=== PATIENT | male | born 1935 | race Caucasian/White ===

== ENCOUNTER 2016-05-11 23:00 | Inpatient (IN) | payer MEDICARE, MEDICAID ==
[2016-05-11 23:00] VITALS: BMI 22.9
--- NOTE | 2016-05-11 23:15 | C.PDOC ---
History Of Present Illness <LukeNehemiah - Last Filed: 05/12/16 04:30> <Leonidas Pizarro - Last Filed: 05/14/16 11:50> 81 y/o M from [facility] PMx CHF, HTN, DM, CAD, BPH, Alzheimer's dementia , being treated for GI bleed at [place] sent to ER for finding of abnormal labs including elevated potassium, BUN, creatinine, and low bicarb. Patient does not know why he is in ER and denies any complaints. (Leonidas Pizarro) <Nehemiah Luke Werner - Last Filed: 05/12/16 04:30> <Leonidas Pizarro - Last Filed: 05/14/16 11:50> Time Seen by Provider: 05/11/16 23:12 Past Medical History - Medical History PMH: Alzheimer's Disease, Asthma, Diabetes, HTN Denies: Chronic Kidney Disease Surgical History: CABG Family History: States: Unknown Family Hx - Social History Hx Tobacco Use: No Hx Alcohol Use: No Hx Substance Use: No - Immunization History Hx Tetanus Toxoid Vaccination: No Hx Influenza Vaccination: No Hx Pneumococcal Vaccination: No <Leonidas Pizarro - Last Filed: 05/14/16 11:50> Vital Signs: Last Vital Signs Temp 97.4 F L 05/14/16 07:29 Pulse 92 H 05/14/16 07:29 Resp 20 05/14/16 07:29 BP 115/72 05/14/16 11:17 Pulse Ox 98 05/14/16 07:29 - [facility] Procedures DEBRIDEMENT OF NAIL, NAIL BED OR NAIL FOLD (06/28/13) EXCISION OF ASCENDING COLON, ENDO, DIAGN (11/03/15) EXCISION OF DESCENDING COLON, ENDO, DIAGN (11/03/15) EXCISION OF STOMACH, ENDO, DIAGN (11/03/15) INSPECTION OF BLADDER, ENDO (07/20/15) VACCINATION NEC (06/28/13) Review Of Systems Review Of Systems: ROS cannot be obtained secondary to pt's inabilty to answer questions. (dementia) <Leonidas Pizarro Beti - Last Filed: 05/14/16 11:50> Physical Exam <Nehemiah Luke - Last Filed: 05/12/16 04:30> <MoiraLeonidas Bang - Last Filed: 05/14/16 11:50> - Physical Exam Additional Physical Exam Comments: Constitutional: Thin elderly male. Head: Normocephalic. Atraumatic. Eyes: PERRL. ENT: Moist mucous membranes. Neck: Supple. Cardiovascular: Regular rate. Radial pulses 2+ bilaterally. Chest: No tenderness. Respiratory: Clear to auscultation bilaterally. GI: Soft. Nontender. Nondistended. Back: No CVA tenderness. Musculoskeletal: No tenderness or swelling of extremities. Skin: No rash. Neurologic: Alert, no focal deficit. (Leonidas Pizarro) ED Course And Treatment - Laboratory Results Result Diagrams: 05/12/16 00:14 05/12/16 00:14 ECG: Interpreted By Me, Viewed By Me ECG Rhythm: Sinus Rhythm (74) <Nehemiah Luke - Last Filed: 05/12/16 04:30> - Laboratory Results Result Diagrams: 05/14/16 05:54 05/14/16 05:54 <Leonidas Pizarro - Last Filed: 05/14/16 11:50> Medical Decision Making <Nehemiah Luke - Last Filed: 05/12/16 04:30> <Leonidas Pizarro - Last Filed: 05/14/16 11:50> Medical Decision Making: Repeat labs. Check EKG for potassium changes. Will hold off on IVF due to patient's CHF. Dr. Pink will be called to accept patient to his service. EKG NSR 74 bpm with T wave inversions laterally, unchanged from previous. No peaked T waves, normal intervals. CXR no infiltrate or consolidation. Signed out to ER night team at end of shift. (Leonidas Pizarro) Disposition Discussed With : Alvarado Pink Doctor Will See Patient In The: Hospital Counseled Patient/Family Regarding: Diagnosis - Disposition Disposition Time: 04:26 - POA Present On Arrival: None <Nehemiah Luke - Last Filed: 05/12/16 04:30> - Disposition Disposition Time: 01:00 <Leonidas Pizarro - Last Filed: 05/14/16 11:50> - Disposition Condition: GUARDED - Clinical Impression Clinical Impression: Hyperkalemia, Renal insufficiency
[2016-05-12 00:18] LABS: BASO % 0.5 % (0.0-2.0); EOS # 0.3 K/uL (0.0-0.7); EOS % 3.4 % (0.0-4.0); HEMATOCRIT 32.6 % (35.0-51.0); LYMPH # 0.8 K/uL (1.0-4.3); MEAN CELL VOLUME 93.5 fL (80.0-94.0); MEAN CORPUSCULAR HGB CONC 33.1 g/dL (33.0-37.0); MEAN PLATELET VOLUME 8.6 fL (7.2-11.7); MONO # 1.7 K/uL (0.0-0.8); MONO % 21.5 % (0.0-10.0); NRBC % 0.1 % (0.0-2.0); PLATELET COUNT 203 K/uL (130-400); RED CELL DISTRIBUTION WIDTH 13.3 % (11.5-14.5); WHITE BLOOD COUNT 7.7 K/uL (4.8-10.8)
[2016-05-12 00:28] LABS: INR 1.1
[2016-05-12 00:31] LABS: POTASSIUM 5.4 mmol/L (3.6-5.2)
[2016-05-12 00:34] LABS: ALB/GLOB RATIO 1.1 (1.0-2.1); BILIRUBIN,TOTAL 1.2 mg/dL (0.2-1.3); CALCIUM 9.3 mg/dl (8.6-10.4); TOTAL PROTEIN 7.8 g/dL (6.3-8.3)
[2016-05-12 00:46] LABS: TROPONIN I 0.03 ng/mL (0.00-0.120)
[2016-05-12 02:57] LABS: EOSINOPHIL 3 % (0-4); NEUTROPHIL 61 % (50-75); TOTAL CELLS COUNTED 100
[2016-05-12] MEDS ORDERED: Albuterol 0.042% Inhal Sol (1.25 mg/3 mL) UD IH STA (04:14)
[2016-05-12] MEDS ORDERED: Albuterol 0.042% Inhal Sol (1.25 mg/3 mL) UD ONE (04:53)
[2016-05-12] MEDS ORDERED: guaiFENesin 200 mg/10 ml Syrup UD PO PRN (05:37)
[2016-05-12] MEDS: Sodium Chloride 0.9% 1,000 ML IV SCH ×2 (06:37→22:48)
[2016-05-12 06:45] LABS: HEMATOCRIT 32.2 % (35.0-51.0); MEAN CELL VOLUME 93.4 fL (80.0-94.0); MEAN CORPUSCULAR HEMOGLOBIN 31.5 pg (27.0-31.0); MEAN CORPUSCULAR HGB CONC 33.8 g/dL (33.0-37.0); MEAN PLATELET VOLUME 8.2 fL (7.2-11.7); RED CELL DISTRIBUTION WIDTH 13.1 % (11.5-14.5); WHITE BLOOD COUNT 6.6 K/uL (4.8-10.8)
[2016-05-12 06:56] LABS: POTASSIUM 4.9 mmol/L (3.6-5.2)
[2016-05-12 06:58] LABS: IRON 97 ug/dL (49-181)
[2016-05-12 06:59] LABS: CALCIUM 9.3 mg/dl (8.6-10.4)
[2016-05-12 07:18] LABS: RBC URINE < 1 /hpf (0-3); URINE BACTERIA RARE (<OCC); URINE BILIRUBIN NEGATIVE (NEGATIVE); URINE BLOOD NEGATIVE (NEGATIVE); URINE COLOR Yellow (YELLOW); URINE GLUCOSE (UA) NORMAL (Normal); URINE KETONE NEGATIVE (NEGATIVE); URINE LEUKOCYTE ESTERASE NEG Leu/uL (Negative); URINE PROTEIN NEGATIVE (NEGATIVE); URINE UROBILINOGEN NORMAL mg/dL (0.2-1.0); WBC URINE 2 /hpf (0-5)
[2016-05-12] MEDS ORDERED: Albuterol-Ipratrop 3 mg / 0.5 (3 ml) UD ONE (07:52)
[2016-05-12] MEDS: Albuterol-Ipratrop 3 mg / 0.5 (3 ml) UD INH SCH ×2 (07:56→19:53)
--- NOTE | 2016-05-12 08:37 | RAD ---
HISTORY: dehydration COMPARISON: No prior. FINDINGS: LUNGS: Biapical pleural thickening with upper lobe granulomatous changes. Right hilar prominence. No focal infiltrate or effusion. PLEURA: No significant pleural effusion identified, no pneumothorax apparent. CARDIOVASCULAR: Normal. OSSEOUS STRUCTURES: Calcific tendinopathy of the left proximal humerus. VISUALIZED UPPER ABDOMEN: Normal. OTHER FINDINGS: Status post median sternotomy. IMPRESSION: Biapical pleural thickening with upper lobe granulomatous changes. Right hilar prominence. No focal infiltrate or effusion.
[2016-05-12] MEDS: (Novolog) Insulin Aspart, Recombinant 100 u/ml 10 ml vial SC SCH ×4 (09:52→22:10)
--- NOTE | 2016-05-12 09:55 | US ---
PROCEDURE: Ultrasound of the Kidneys HISTORY: brian COMPARISON: None available. TECHNIQUE: Sonogram of the kidneys. FINDINGS: RIGHT KIDNEY: Measures: 10.3 cm. Normal in size, contour and echogenicity. Simple cortical cyst mid right kidney, 1.1 x 1.1 x 1.2 cm. 3 mm cortical calcification mid right kidney. LEFT KIDNEY: Measures: 8.9 cm. Normal in size, contour and echogenicity. No stone, solid mass lesion or hydronephrosis visualized. OTHER FINDINGS: None. IMPRESSION: 1.2 cm mid right renal cortical cysts. Punctate right renal cortical calcification, nonspecific.
[2016-05-12] MEDS: clonazePAM 0.25 MG TAB PO SCH ×2 (11:19→18:22)
--- NOTE | 2016-05-12 13:45 | CP.PCM.CON ---
History of Present Illness - History of Present Illness History of Present Illness: pt seen and examined, full consult is dictated #[id number] 1. LORETTA on ckd 2. Cardiomayopathy 3. s/p hyperkalemia 4. met. acidosis 5. diarrhea r/o c diff, ? sec to kayexalate 6. dehydration 7. dementia check urine lytes, osm, cr, stool ffor c/s, wbc, c diff gentle iv hydration, 1/2ns at 50-70 ml/hr bmp in am Past Patient History - Infectious Disease Hx of Infectious Diseases: None - Past Medical History & Family History Past Medical History?: Yes - Past Social History Smoking Status: Former Smoker - CARDIAC Hx Congestive Heart Failure: Yes Hx Hypertension: Yes - PULMONARY Hx Asthma: Yes - NEUROLOGICAL Hx Alzheimer's Disease: Yes - HEENT Hx HEENT Problems: No - RENAL Hx Chronic Kidney Disease: No - ENDOCRINE/METABOLIC Hx Endocrine Disorders: Yes Hx Diabetes Mellitus Type 2: Yes - INTEGUMENTARY Other/Comment: old scrath scar on both arms, chest , abdomen and back. - MUSCULOSKELETAL/RHEUMATOLOGICAL Hx Falls: Yes - GASTROINTESTINAL Hx Gastrointestinal Disorders: No Hx Diarrhea: Yes Other/Comment: GI bleed - GENITOURINARY/GYNECOLOGICAL Hx Genitourinary Disorders: No Hx Prostate Problems: Yes - PSYCHIATRIC Hx Substance Use: No - SURGICAL HISTORY Hx Coronary Artery Bypass Graft: Yes - ANESTHESIA Hx Anesthesia: Yes Hx Anesthesia Reactions: No Hx Malignant Hyperthermia: No Meds Allergies/Adverse Reactions: Allergies Allergy/AdvReac Type Severity Reaction Status Date / Time No Known Allergies Allergy Verified 05/11/16 23:18 - Medications Medications: Current Medications Albuterol/Ipratropium (Duoneb 3 Mg/0.5 Mg (3 Ml) Ud) 3 ml INH RQ6 [facility] Last Admin: 05/12/16 07:56 Dose: 3 ml Clonazepam (Klonopin- Half Tab) 0.25 mg PO BID [facility] Last Admin: 05/12/16 11:19 Dose: 0.25 mg Donepezil HCl (Aricept) 10 mg PO HS [facility] Guaifenesin (Robitussin) 200 mg PO Q4H PRN PRN Reason: Cough and congestion Sodium Chloride (Sodium Chloride 0.9%) 1,000 mls @ 60 mls/hr IV .[id number] [facility] Last Admin: 05/12/16 06:37 Dose: 60 mls/hr Insulin Aspart (Novolog) 0 unit SC ACHS [facility] PRN Reason: Protocol Last Admin: 05/12/16 13:03 Dose: 3 unit Metoprolol Tartrate (Lopressor) 25 mg PO BID [facility] Last Admin: 05/12/16 11:19 Dose: 25 mg Pantoprazole Sodium (Protonix Inj) 40 mg IVP DAILY [facility] Last Admin: 05/12/16 11:19 Dose: 40 mg Pneumococcal Polyvalent Vaccine (Pneumovax 23 Vaccine) 0.5 ml IM .ONCE ONE Stop: 05/14/16 10:01 Quetiapine Fumarate (Seroquel) 25 mg PO [facility] Tamsulosin HCl (Flomax) 0.4 mg PO DAILY [facility] Last Admin: 05/12/16 11:19 Dose: 0.4 mg Results - Vital Signs Recent Vital Signs: Last Vital Signs Temp 97.3 F L 05/12/16 09:08 Pulse 76 05/12/16 09:08 Resp 20 05/12/16 09:08 BP 111/58 L 05/12/16 11:19 Pulse Ox 96 05/12/16 09:08 - Labs Result Diagrams: 05/12/16 06:42 05/12/16 06:42 Labs: Laboratory Results - last 24 hr 05/12/16 05/12/16 05/12/16 06:42 07:08 07:39 WBC 6.6 RBC 3.44 L Hgb 10.9 L Hct 32.2 L MCV 93.4 MCH 31.5 H MCHC 33.8 RDW 13.1 Plt Count 202 MPV 8.2 Sodium 136 Potassium 4.9 Chloride 103 Carbon Dioxide 19 L Anion Gap 19 BUN 95 H Creatinine 2.8 H Est GFR ( Amer) 26 Est GFR (Non-Af Amer) 22 POC Glucose (mg/dL) 184 H Random Glucose 156 H Calcium 9.3 Iron 97 TIBC 263 % Saturation 37 Urine Color Yellow Urine Clarity Hazy Urine pH 5.0 Ur Specific [place] 1.017 Urine Protein Negative Urine Glucose (UA) Normal Urine Ketones Negative Urine Blood Negative Urine Nitrate Negative Urine Bilirubin Negative Urine Urobilinogen Normal Ur Leukocyte Esterase Neg Urine WBC (Auto) 2 Urine RBC (Auto) < 1 Ur Squamous Epith Cells < 1 Urine Bacteria Rare Stool Occult Blood 05/12/16 05/12/16 05/12/16 09:21 09:44 11:32 WBC RBC Hgb Hct MCV MCH MCHC RDW Plt Count MPV Sodium Potassium Chloride Carbon Dioxide Anion Gap BUN Creatinine Est GFR ( Amer) Est GFR (Non-Af Amer) POC Glucose (mg/dL) 212 H 261 H Random Glucose Calcium Iron TIBC % Saturation Urine Color Urine Clarity Urine pH Ur Specific [place] Urine Protein Urine Glucose (UA) Urine Ketones Urine Blood Urine Nitrate Urine Bilirubin Urine Urobilinogen Ur Leukocyte Esterase Urine WBC (Auto) Urine RBC (Auto) Ur Squamous Epith Cells Urine Bacteria Stool Occult Blood Positive H
--- NOTE | 2016-05-12 15:41 | CP.PCM.CON ---
<Jose Ariza - Last Filed: 05/12/16 16:55> History of Present Illness - History of Present Illness History of Present Illness: PGY4 GI Fellow Consult Note Patient is an 80yo male with PMHx significant for Alzheimer's dementia, CAD s/p CABG, CHF with EF 25%, diverticulosis, HTN, Rain's esophagus with low grade dysplasia, H pylori gastritis [facility] and abnormal lab work. The patient is unable to provide any history and does not have any complaints at this time. Apparently, the patient has been passing bright red blood per rectum for the past several days and was transferred to our facility for further evaluation. Discussed case with one to one who is at bedside who admits that the patient has passed two BM since this morning with obvious hematochezia. Currently, the patient denies any complaints whatsoever including abdominal pain, dizziness, lightheadedness, palpitations, nausea, vomiting. The patient was evaluated by our service in October 2015 for similar complaints and found to have 7 polyps and multiple large and small mouthed diverticula. Of note, patient had ascites on last admission with 900cc serosanguinous fluid removed (SAAG not obtained, total protein < 3). PMHx: See HPI PSHx: CABG, left leg surgical scar noted FHx: Unable to obtain Social: Denies - Unable to obtain history Endo: Oct 2015 - EGD/Colon - Poor quality prep; 7 polyps (tubular adenomas), diverticulosis; Rain's esophagus with LGD, H pylori positive gastritis Review of Systems - Review of Systems Systems not reviewed;Unavailable: Dementia Past Patient History - Infectious Disease Hx of Infectious Diseases: None - Past Medical History & Family History Past Medical History?: Yes - Past Social History Smoking Status: Former Smoker - CARDIAC Hx Cardiac Disorders: Yes (CAD,CABG) Hx Congestive Heart Failure: Yes Hx Hypertension: Yes - PULMONARY Hx Asthma: Yes - NEUROLOGICAL Hx Alzheimer's Disease: Yes - HEENT Hx HEENT Problems: No - RENAL Hx Chronic Kidney Disease: No - ENDOCRINE/METABOLIC Hx Diabetes Mellitus Type 2: Yes - INTEGUMENTARY Other/Comment: old scrath scar on both arms, chest , abdomen and back. - MUSCULOSKELETAL/RHEUMATOLOGICAL Hx Falls: Yes - GASTROINTESTINAL Hx Gastrointestinal Disorders: No Hx Diarrhea: Yes Other/Comment: GI bleed - GENITOURINARY/GYNECOLOGICAL Hx Genitourinary Disorders: No Hx Prostate Problems: Yes - PSYCHIATRIC Hx Substance Use: No - SURGICAL HISTORY Hx Coronary Artery Bypass Graft: Yes - ANESTHESIA Hx Anesthesia: Yes Hx Anesthesia Reactions: No Hx Malignant Hyperthermia: No Meds Allergies/Adverse Reactions: Allergies Allergy/AdvReac Type Severity Reaction Status Date / Time No Known Allergies Allergy Verified 05/11/16 23:18 - Medications Medications: Current Medications Albuterol/Ipratropium (Duoneb 3 Mg/0.5 Mg (3 Ml) Ud) 3 ml INH RQ6 [facility] Last Admin: 05/12/16 07:56 Dose: 3 ml Clonazepam (Klonopin- Half Tab) 0.25 mg PO BID [facility] Last Admin: 05/12/16 11:19 Dose: 0.25 mg Donepezil HCl (Aricept) 10 mg PO HS [facility] Guaifenesin (Robitussin) 200 mg PO Q4H PRN PRN Reason: Cough and congestion Sodium Chloride (Sodium Chloride 0.9%) 1,000 mls @ 60 mls/hr IV .[id number] [facility] Last Admin: 05/12/16 06:37 Dose: 60 mls/hr Sodium Chloride (Sodium Chloride 0.45%) 1,000 mls @ 50 mls/hr IV .Q20H [facility] Insulin Aspart (Novolog) 0 unit SC ACHS [facility] PRN Reason: Protocol Last Admin: 05/12/16 13:03 Dose: 3 unit Metoprolol Tartrate (Lopressor) 25 mg PO BID [facility] Last Admin: 05/12/16 11:19 Dose: 25 mg Pantoprazole Sodium (Protonix Inj) 40 mg IVP DAILY [facility] Last Admin: 05/12/16 11:19 Dose: 40 mg Pneumococcal Polyvalent Vaccine (Pneumovax 23 Vaccine) 0.5 ml IM .ONCE ONE Stop: 05/14/16 10:01 Quetiapine Fumarate (Seroquel) 25 mg PO HS [facility] Tamsulosin HCl (Flomax) 0.4 mg PO DAILY [facility] Last Admin: 05/12/16 11:19 Dose: 0.4 mg Physical Exam - Constitutional Appears: Non-toxic, No Acute Distress - Eye Exam Eye Exam: EOMI, PERRL - ENT Exam ENT Exam: Mucous Membranes Dry - Respiratory Exam Respiratory Exam: Clear to Auscultation Bilateral. absent: Rales, Rhonchi, Wheezes - Cardiovascular Exam Cardiovascular Exam: RRR, +S1, +S2 - GI/Abdominal Exam GI & Abdominal Exam: Normal Bowel Sounds, Soft. absent: Distended, Firm, Guarding, Organomegaly, Rigid, Tenderness - Rectal Exam Rectal Exam: NORMAL INSPECTION. absent: Black Stool, Bloody Stool - Extremities Exam Extremities exam: Positive for: normal inspection. Negative for: pedal edema Additional comments: surgical scar on left leg - Neurological Exam Additional comments: demented - Psychiatric Exam Psychiatric exam: Normal Affect, Normal Mood - Skin Skin Exam: Dry, Warm Results - Vital Signs Recent Vital Signs: Last Vital Signs Temp 97.3 F L 05/12/16 09:08 Pulse 76 05/12/16 09:08 Resp 20 05/12/16 09:08 BP 111/58 L 05/12/16 11:19 Pulse Ox 96 05/12/16 09:08 - Labs Result Diagrams: 05/12/16 06:42 05/12/16 06:42 Labs: Laboratory Results - last 24 hr 05/12/16 05/12/16 05/12/16 06:42 07:08 07:39 WBC 6.6 RBC 3.44 L Hgb 10.9 L Hct 32.2 L MCV 93.4 MCH 31.5 H MCHC 33.8 RDW 13.1 Plt Count 202 MPV 8.2 Sodium 136 Potassium 4.9 Chloride 103 Carbon Dioxide 19 L Anion Gap 19 BUN 95 H Creatinine 2.8 H Est GFR ( Amer) 26 Est GFR (Non-Af Amer) 22 POC Glucose (mg/dL) 184 H Random Glucose 156 H Calcium 9.3 Iron 97 TIBC 263 % Saturation 37 Urine Color Yellow Urine Clarity Hazy Urine pH 5.0 Ur Specific [place] 1.017 Urine Protein Negative Urine Glucose (UA) Normal Urine Ketones Negative Urine Blood Negative Urine Nitrate Negative Urine Bilirubin Negative Urine Urobilinogen Normal Ur Leukocyte Esterase Neg Urine WBC (Auto) 2 Urine RBC (Auto) < 1 Ur Squamous Epith Cells < 1 Urine Bacteria Rare Stool Occult Blood 05/12/16 05/12/16 05/12/16 09:21 09:44 11:32 WBC RBC Hgb Hct MCV MCH MCHC RDW Plt Count MPV Sodium Potassium Chloride Carbon Dioxide Anion Gap BUN Creatinine Est GFR ( Amer) Est GFR (Non-Af Amer) POC Glucose (mg/dL) 212 H 261 H Random Glucose Calcium Iron TIBC % Saturation Urine Color Urine Clarity Urine pH Ur Specific [place] Urine Protein Urine Glucose (UA) Urine Ketones Urine Blood Urine Nitrate Urine Bilirubin Urine Urobilinogen Ur Leukocyte Esterase Urine WBC (Auto) Urine RBC (Auto) Ur Squamous Epith Cells Urine Bacteria Stool Occult Blood Positive H Assessment & Plan - Assessment and Plan (Free Text) Assessment: Patient is an 80yo male with PMHx significant for Alzheimer's dementia, CAD s/p CABG, CHF with EF 25%, diverticulosis, HTN, Rain's esophagus with low grade dysplasia, H pylori gastritis who [facility] of [facility] and abnormal lab work. -Acute blood loss anemia -Acute renal insufficiency -Hematochezia; suspect diverticular bleeding given known history and recent colonoscopy -Rain's esophagus with low grade dysplasia -CAD/CABG/CHF (EF 25%) -H pylori gastritis, unclear if treated previously Plan: -Medical optimization: re: LORETTA/CAD prior to endoscopic intervention -Request cardiology clearance for EGD/Colonoscopy, plan for Thursday -Clear liquid diet tomorrow; start bowel prep tomorrow afternoon if cleared by consultants -Transfuse as indicated -With regards to suspected Rain's esophagus given recent biopsy results - patient would benefit from repeat EGD with biopsies to evaluate site; possibly even EUS if nodular BE suspected -It does not appear patient has been treated for H pylori, will biopsy during repeat EGD and treat with triple therapy as indicated - Date & Time Date: 05/12/16 Time: 13:00 <Cali Shaffer MD - Last Filed: 05/13/16 10:10> Meds - Medications Medications: Current Medications Albuterol/Ipratropium (Duoneb 3 Mg/0.5 Mg (3 Ml) Ud) 3 ml INH RQ6 [facility] Last Admin: 05/13/16 08:29 Dose: 3 ml Clonazepam (Klonopin- Half Tab) 0.25 mg PO BID [facility] Last Admin: 05/12/16 18:22 Dose: 0.25 mg Donepezil HCl (Aricept) 10 mg PO HS [facility] Last Admin: 05/12/16 21:33 Dose: 10 mg Guaifenesin (Robitussin) 200 mg PO Q4H PRN PRN Reason: Cough and congestion Sodium Chloride (Sodium Chloride 0.9%) 1,000 mls @ 60 mls/hr IV .[id number] [facility] Last Admin: 05/12/16 22:48 Dose: Not Given Sodium Chloride (Sodium Chloride 0.45%) 1,000 mls @ 50 mls/hr IV .Q20H [facility] Last Admin: 05/12/16 16:09 Dose: 50 mls/hr Insulin Aspart (Novolog) 0 unit SC ACHS [facility] PRN Reason: Protocol Last Admin: 05/13/16 08:14 Dose: Not Given Metoprolol Tartrate (Lopressor) 25 mg PO BID [facility] Last Admin: 05/12/16 18:20 Dose: 25 mg Pantoprazole Sodium (Protonix Inj) 40 mg IVP DAILY [facility] Last Admin: 05/12/16 11:19 Dose: 40 mg Pneumococcal Polyvalent Vaccine (Pneumovax 23 Vaccine) 0.5 ml IM .ONCE ONE Stop: 05/14/16 10:01 Quetiapine Fumarate (Seroquel) 25 mg PO HS [facility] Last Admin: 05/12/16 21:33 Dose: 25 mg Tamsulosin HCl (Flomax) 0.4 mg PO DAILY [facility] Last Admin: 05/12/16 11:19 Dose: 0.4 mg Results - Vital Signs Recent Vital Signs: Last Vital Signs Temp 98.3 F 05/13/16 07:33 Pulse 80 05/13/16 07:33 Resp 20 05/13/16 07:33 BP 114/69 05/13/16 07:33 Pulse Ox 98 05/13/16 07:33 - Labs Result Diagrams: 05/12/16 06:42 05/12/16 06:42 Labs: Laboratory Results - last 24 hr 05/12/16 05/12/16 05/12/16 09:44 11:32 16:50 POC Glucose (mg/dL) 261 H 132 H Ur Random Sodium Ur Random Potassium Stool Occult Blood Positive H 05/12/16 05/13/16 05/13/16 21:41 07:25 07:47 POC Glucose (mg/dL) 149 H 118 H Ur Random Sodium 32 Ur Random Potassium 33.9 Stool Occult Blood Attending/Attestation - Attestation I have personally seen and examined this patient.: Yes I have fully participated in the care of the patient.: Yes I have reviewed all pertinent clinical information: Yes Notes (Text): 05/13/16 10:08 patient seen with Gi fellow on rounds. A/P is as outlined yesterday afternoon. This is a 80yo male with PMHx significant for Alzheimer's dementia, CAD s/p CABG , CHF with EF 25%, diverticulosis, HTN, Rain's esophagus with low grade dysplasia, H pylori gastritis who [facility] and abnormal lab work. H/Hct dropped by 2 gm/dl. Needs medical optimization for LORETTA/CAD prior to endoscopic intervention and cardiology clearance for EGD/Colonoscopy, plan for Thursday. Transfuse as indicated -With regards to suspected Rain's esophagus given recent biopsy results - patient would benefit from repeat EGD with biopsies to evaluate site; possibly even EUS if nodular BE suspected -It does not appear patient has been treated for H pylori, will biopsy during repeat EGD and treat with triple therapy as indicated
[2016-05-12] MEDS: Sodium Chloride 0.45% 1,000 ML IV SCH (16:09)
--- NOTE | 2016-05-12 16:10 | CON ---
DATE: 05/12/2016 REFERRING PHYSICIAN: Dr. Pink HISTORY OF PRESENT ILLNESS: This 81-year-old gentleman was brought in from [facility] with worsen ing of the renal status. He was found to be lethargic. The patient has a longstanding history of di ffuse atherosclerosis, history of hypertension, diabetes, coronary artery disease, peripheral vascula r disease, Alzheimer disease, history of GI bleed. PERSONAL HISTORY: Does not smoke, does not drink. ALLERGIES: None known. FAMILY HISTORY: One son, to my recollection, has diabetes. PAST MEDICAL HISTORY: History of diabetes, insulin-dependent; hypertension, chronic kidney disease, CABG many years ago. Also has peripheral vascular disease and headache. Fem-pop done on the right s emmett. This was done many years ago. Carotid disease. REVIEW OF SYSTEMS: Generalized weakness is noted. No fever, no chills. No visual disturbances. De nies any urinary complaints. Denies any chest pains. No cough, no hemoptysis. Weakness is noted. Leg pains. No specific joint pains. No seizures. No history of TIAs or CVAs. Frequency is noted f or urination. No rash. MEDICATIONS AT HOME: Include, he is on insulin, metoprolol, Flomax, nebulizer treatment. PHYSICAL EXAMINATION: GENERAL: Shows elderly gentleman who is conscious, alert, and oriented. He remembers my name. In n o acute distress. Appears chronically sick. VITAL SIGNS: He is 5 feet 5 inches and weighs 120 pounds. His blood pressure is 111/58, heart rate of 76 regular, respiratory rate of 20, temperature of 97.3. HEAD: Normocephalic. EYES: No pallor, no icterus. MOUTH: Absence of all teeth. Mucous membrane is dry. NECK: Supple. No lymphadenopathy. No thyroid enlargement. LUNGS: Clear anteriorly bilaterally. HEART: PMI is normal. S1, S2 is normal. Soft S4 gallop. Soft holosystolic murmur in mitral area, grade I/ to II/. ABDOMEN: Soft, nontender. EXTREMITIES: No cyanosis, clubbing or edema. Distal pulses are feeble, but palpable. SKIN: Shows healed surgical scar of CABG and right fem-popliteal. LABORATORY DATA: Shows BUN of 95. Creatinine is 2.8. Sugar is 261. Hemoglobin is 10 grams. EKG i s sinus rhythm, nonspecific ST-T changes. ASSESSMENT: An 81-year-old gentleman with a history of hypertension, diabetes, diffuse atheroscleros is and chronic kidney disease as well. Presented with worsening of the renal failure. PLAN: Hydration gingerly. We will obtain echocardiogram with Doppler studies to evaluate the LV fun ction. Nephrology consultation has already been done by Dr. Rowley and we will follow along wi th you. I thank you kindly. Aj Johnson MD cc: [id number] TT: 05/12/2016 16:09:39 Confirmation # [id number] Dictation # [id number]
--- NOTE | 2016-05-12 23:14 | CARD ---
APPROVED REPORT EKG Measurement Heart [id number] <Conclusion> Normal sinus rhythm with sinus arrhythmia Possible Left atrial enlargement ST & T wave abnormality, consider anterolateral ischemia Abnormal ECG
--- NOTE | 2016-05-12 23:27 | CP.PCM.HP ---
History of Present Illness - History of Present Illness History of Present Illness: Cheif complain: rectal bleeding. Patient is an 80yo male well known to me with PMHx significant for Alzheimer's dementia, CAD s/p CABG, CHF with EF 25%, diverticulosis, HTN, Hyperlipidemia, Rain's esophagus with low grade dysplasia, H pylori gastritis who is complaint with diet, medication and follow up, presented from group home with complaint of rectal bleeding and abnormal lab work. The patient is unable to provide any history and does not have any complaints at this time. Apparently, the patient has been passing bright red blood per rectum for the past several days and was transferred to our facility for further evaluation. Discussed case with one to one who is at bedside who admits that the patient has passed two BM since this morning with obvious hematochezia. Currently, the patient denies any complaints whatsoever including abdominal pain, dizziness, lightheadedness, palpitations, nausea, vomiting. The patient was evaluated by GI in October 2015 for similar complaints and found to have 7 polyps and multiple large and small mouthed diverticula. Of note, patient had ascites on last admission with 900cc serosanguinous fluid removed (SAAG not obtained, total protein < 3). Present on Admission - Present on Admission Any Indicators Present on Admission: No Past Patient History - Infectious Disease Hx of Infectious Diseases: None - Past Medical History & Family History Past Medical History?: Yes - Past Social History Smoking Status: Former Smoker - CARDIAC Hx Congestive Heart Failure: Yes Hx Hypertension: Yes - PULMONARY Hx Asthma: Yes - NEUROLOGICAL Hx Alzheimer's Disease: Yes - HEENT Hx HEENT Problems: No - RENAL Hx Chronic Kidney Disease: No - ENDOCRINE/METABOLIC Hx Endocrine Disorders: Yes Hx Diabetes Mellitus Type 2: Yes - INTEGUMENTARY Other/Comment: old scrath scar on both arms, chest , abdomen and back. - MUSCULOSKELETAL/RHEUMATOLOGICAL Hx Falls: Yes - GASTROINTESTINAL Hx Gastrointestinal Disorders: No Hx Diarrhea: Yes Other/Comment: GI bleed - GENITOURINARY/GYNECOLOGICAL Hx Genitourinary Disorders: No Hx Prostate Problems: Yes - PSYCHIATRIC Hx Substance Use: No - SURGICAL HISTORY Hx Coronary Artery Bypass Graft: Yes - ANESTHESIA Hx Anesthesia: Yes Hx Anesthesia Reactions: No Hx Malignant Hyperthermia: No Meds Allergies/Adverse Reactions: Allergies Allergy/AdvReac Type Severity Reaction Status Date / Time No Known Allergies Allergy Verified 05/11/16 23:18 Physical Exam - Constitutional Appears: No Acute Distress, Confused, Chronically Ill - Respiratory Exam Respiratory Exam: Decreased Breath Sounds, Rales - Cardiovascular Exam Cardiovascular Exam: REGULAR RHYTHM - GI/Abdominal Exam GI & Abdominal Exam: Normal Bowel Sounds, Soft. absent: Tenderness - Rectal Exam Rectal Exam: Bloody Stool - Neurological Exam Neurological exam: Altered - Skin Additional comments: senile turgor Results - Vital Signs Recent Vital Signs: Last Vital Signs Temp 97.3 F L 05/12/16 09:08 Pulse 92 H 05/12/16 19:55 Resp 20 05/12/16 09:08 BP 112/62 05/12/16 18:20 Pulse Ox 96 05/12/16 09:08 - Labs Result Diagrams: 05/15/16 05:31 05/15/16 05:31 Labs: Laboratory Results - last 24 hr 05/12/16 05/12/16 05/12/16 06:42 07:08 07:39 WBC 6.6 RBC 3.44 L Hgb 10.9 L Hct 32.2 L MCV 93.4 MCH 31.5 H MCHC 33.8 RDW 13.1 Plt Count 202 MPV 8.2 Sodium 136 Potassium 4.9 Chloride 103 Carbon Dioxide 19 L Anion Gap 19 BUN 95 H Creatinine 2.8 H Est GFR ( Amer) 26 Est GFR (Non-Af Amer) 22 POC Glucose (mg/dL) 184 H Random Glucose 156 H Calcium 9.3 Iron 97 TIBC 263 % Saturation 37 Urine Color Yellow Urine Clarity Hazy Urine pH 5.0 Ur Specific [place] 1.017 Urine Protein Negative Urine Glucose (UA) Normal Urine Ketones Negative Urine Blood Negative Urine Nitrate Negative Urine Bilirubin Negative Urine Urobilinogen Normal Ur Leukocyte Esterase Neg Urine WBC (Auto) 2 Urine RBC (Auto) < 1 Ur Squamous Epith Cells < 1 Urine Bacteria Rare Stool Occult Blood 05/12/16 05/12/16 05/12/16 09:21 09:44 11:32 WBC RBC Hgb Hct MCV MCH MCHC RDW Plt Count MPV Sodium Potassium Chloride Carbon Dioxide Anion Gap BUN Creatinine Est GFR ( Amer) Est GFR (Non-Af Amer) POC Glucose (mg/dL) 212 H 261 H Random Glucose Calcium Iron TIBC % Saturation Urine Color Urine Clarity Urine pH Ur Specific [place] Urine Protein Urine Glucose (UA) Urine Ketones Urine Blood Urine Nitrate Urine Bilirubin Urine Urobilinogen Ur Leukocyte Esterase Urine WBC (Auto) Urine RBC (Auto) Ur Squamous Epith Cells Urine Bacteria Stool Occult Blood Positive H 05/12/16 05/12/16 16:50 21:41 WBC RBC Hgb Hct MCV MCH MCHC RDW Plt Count MPV Sodium Potassium Chloride Carbon Dioxide Anion Gap BUN Creatinine Est GFR ( Amer) Est GFR (Non-Af Amer) POC Glucose (mg/dL) 132 H 149 H Random Glucose Calcium Iron TIBC % Saturation Urine Color Urine Clarity Urine pH Ur Specific [place] Urine Protein Urine Glucose (UA) Urine Ketones Urine Blood Urine Nitrate Urine Bilirubin Urine Urobilinogen Ur Leukocyte Esterase Urine WBC (Auto) Urine RBC (Auto) Ur Squamous Epith Cells Urine Bacteria Stool Occult Blood Assessment & Plan (1) Dementia Status: Chronic (2) Hypertension Status: Chronic (3) Rectal bleeding Status: Resolved
--- NOTE | 2016-05-13 01:18 | CON ---
DATE: 05/12/2016 The patient is located in room 360, bed B. REQUESTING PHYSICIAN: Dr. Alvarado Pink. REASON FOR RENAL CONSULTATION: Increased BUN and creatinine and for further evaluation. HISTORY OF PRESENT ILLNESS: The patient is an 81-year-old male who is a resident of [facility] with a history of hypertension, diabetes, congestive heart failure, coronary artery disease, BPH and dementia, being treated for a GI bleed in the jail, was found to have increased BUN and creatinine and abnormal labs and elevated potassium and low bicarbonate and the patient was sent to the Emergency Room for further evaluation. Unable to get much history from the patient and chart reviewed and history obtained from the review of the chart. PAST MEDICAL HISTORY: Significant for hypertension, diabetes, asthma, dementia , CAD, CHF, cardiomyopathy with LV function 25-30% and dementia. PAST SURGICAL HISTORY: Status post CABG and right leg surgery and also bilateral questionable hernia surgery. ALLERGIES: No known drug allergies. SOCIAL HISTORY: No smoking, no alcohol, no drugs at this time, but is in the jail. CURRENT MEDICATIONS: Include as follows: Aricept 10 mg at bedtime, and albuterol inhaler 3 mL every 6 hours, Flomax 0.4 mg p.o. daily, Klonopin 0.25 mg p.o. b.i.d. and metoprolol 25 mg p.o. b.i.d. and pneumococcal vaccine x 1, Protonix 40 mg daily, and Robitussin 200 mg p.o. every 4 hours p.r.n., Seroquel 25 mg p.o. at bedtime and IV fluids half normal saline at 50 mL per hour. FAMILY HISTORY: Not significant. REVIEW OF SYSTEMS: Significant for abnormal labs and diarrhea about 5 times since the patient was admitted to the floor and also significant for dehydration. All other review of systems are reviewed and are negative. PHYSICAL EXAMINATION: VITAL SIGNS: Blood pressure 112/62 and pulse about 92, respirations 20, temperature 97.3, saturation 96%. Height 5 feet 5 inches and weight is 120 pounds, BMI 20. GENERAL: The patient is an 81-year-old elderly male, moderately built , moderately nourished, not in any distress. HEENT: Pupils normal, reactive to light and accommodation. Conjunctivae pink. Sclerae anicteric. Tongue is dry. NECK: Trachea is midline. LUNGS: Symmetric on both sides. Bilateral breath sounds present. No crackles. CARDIOVASCULAR: Drybranch in the fifth intercostal space midclavicular line. S1 and S2 audible. No murmur or gallop. ABDOMEN: Normal in appearance. The patient has a scar in both inguinal regions and also a scar in the right lower extremity. Abdomen is soft, tympanic. No guarding, no rigidity. No hepatosplenomegaly. No abdominal bruits. CENTRAL NERVOUS SYSTEM: The patient is alert, awake, oriented x 1-2. EXTREMITIES: No cyanosis, no clubbing, no edema. SKIN: Turgor is poor. NEUROVASCULAR: Cranial nerves II-XII grossly intact. LABORATORY DATA: Include as follows as of 05/12/2016: WBC 7.7, hemoglobin 10.8 , hematocrit is 32.6, platelets 203 and neutrophils 61, bands 1, lymphocytes 16 , monocytes 19, eosinophils 3. PT is 11.8, INR 1.1, PTT 25. Sodium 132, potassium 5.4, chloride 99, CO2 16, BUN 94, creatinine 3.0. Glucose is 157, calcium 9.3, total bilirubin 1.2, AST 22, ALT 18, alkaline phosphatase is 52. Total CPK is 48, CK-MB 1.57. Troponin 0.0300, proBNP 3500. Total protein 7.8, albumin is 4.1, lipase is 84. His repeat labs: Sodium 136, potassium 4.9, chloride 103, CO2 19, BUN 95, creatinine 2.8, glucose 156, calcium 9.3 and iron is 97, TIBC 263, saturation 37. Urinalysis, yellow, hazy, pH 5, sp gr1.017, protein negative, glucose normal, ketones negative, blood negative, nitrites negative, bilirubin negative, urobilinogen normal, leukocyteesterasenegative, WBC 2, RBC less than 1, bacteriuria and stool for occult blood is positive. Ultrasound of the kidneys as of 05/12/2016. Right kidney 10.3 cm, normal size, contour and echogenicity simple cortical cyst, midright kidney 1.1 cm x 1.1 cm x 1.2 cm and 3 mm cortical calcification midright kidney, left kidney is 8.9 cm , normal size and contour and echogenicity. No stones, solid mass or hydronephrosis. Other reports: Chest x-ray, biapical pleural thickening with upper lobe granulomatous changes, right hilar prominence. No focal infiltrate or effusion status post median sternotomy. Review of the chart from the previous admissions: His echocardiogram LV function was about 25-30% as of 07/20/2015, left ventricular systolic function is severely impaired and ejection fraction is 25-30%. No aortic regurgitation is present. Mitral regurgitation is mild. There is mild to moderate tricuspid regurgitation. There is severe pulmonary hypertension. There is no pulmonary valve regurgitation. SUMMARY: The patient is an 81-year-old elderly male with a history of longstanding hypertension, diabetes, congestive heart failure, coronary artery disease, status post CABG, bilateral questionable hernia repair and dementia who was admitted with increased BUN and creatinine and hyperkalemia. Low bicarbonate. 1. Acute renal failure on chronic kidney disease. His baseline creatinine is about 1 from the previous hospitalization as of 11/11/2015 and his creatinine is 1-1.12 and 0.9. On admission now, the creatinine is 3.0. Rule out obstruction uropathy versus secondary to intravascular volume depletion and vigorous diuresis and increased azotemia. Cannot rule out secondary to slow GI bleed also. 2. Dehydration. 3. Diarrhea, rule out infectious etiology. 4. Cardiomyopathy. 5. Hypertension. 6. Dementia. 7. Status post hyperkalemia, most likely secondary to acute renal failure. Repeat potassium is within normal limits 8. Metabolic acidosis, most likely secondary to renal failure. PLAN: Continue Aricept and check urine electrolytes and osmolality and urine creatinine. We will start gentle IV hydration half normal saline at 60-70 mL per hour. He has tolerated repeat BMP in a.m. Overall, prognosis is guarded. Check stool for C. diff and stool for culture and leukocytes. Continue to monitor the renal function. No need for sodium bicarbonate at this time. Thank you for allowing me to participate in your patient's care. Sourav Rowley MD cc: [id number] TT: 05/13/2016 01:17:51 Confirmation # [id number] Dictation # [id number] [email or web address] EDDY
[2016-05-13] MEDS: Albuterol-Ipratrop 3 mg / 0.5 (3 ml) UD INH SCH ×4 (01:35→19:17)
[2016-05-13] MEDS: (Novolog) Insulin Aspart, Recombinant 100 u/ml 10 ml vial SC SCH ×5 (08:14→21:30)
--- NOTE | 2016-05-13 08:16 | CP.PCM.PN ---
<Jose Ariza - Last Filed: 05/13/16 08:20> Subjective - Date & Time of Evaluation Date of Evaluation: 05/13/16 Time of Evaluation: 07:20 - Subjective Subjective: PGY4 GI Fellow Progress Note Patient seen and examined bedside this morning. The patient denies any complaints at present. Full tray of liquid diet at bedside, untouched. Pt states he isn't hungry presently. Denies any abdominal pain nausea, vomiting, hematochezia, melena. Spoke with nursing staff who state pt had normal BM overnight with no sign of bright red blood. 12 system ROS performed and negative except where stated. ROS limited by dementia. Objective - Vital Signs/Intake and Output Vital Signs (last 24 hours): Temp Pulse Resp BP Pulse Ox 98.3 F 80 20 114/69 98 05/13/16 07:33 05/13/16 07:33 05/13/16 07:33 05/13/16 07:33 05/13/16 07:33 Intake and Output: 05/13/16 05/13/16 06:59 18:59 Intake Total 1230 Balance 1230 - Medications Medications: Current Medications Albuterol/Ipratropium (Duoneb 3 Mg/0.5 Mg (3 Ml) Ud) 3 ml INH RQ6 [facility] Last Admin: 05/13/16 01:35 Dose: Not Given Clonazepam (Klonopin- Half Tab) 0.25 mg PO BID [facility] Last Admin: 05/12/16 18:22 Dose: 0.25 mg Donepezil HCl (Aricept) 10 mg PO HS [facility] Last Admin: 05/12/16 21:33 Dose: 10 mg Guaifenesin (Robitussin) 200 mg PO Q4H PRN PRN Reason: Cough and congestion Sodium Chloride (Sodium Chloride 0.9%) 1,000 mls @ 60 mls/hr IV .[id number] [facility] Last Admin: 05/12/16 22:48 Dose: Not Given Sodium Chloride (Sodium Chloride 0.45%) 1,000 mls @ 50 mls/hr IV .Q20H [facility] Last Admin: 05/12/16 16:09 Dose: 50 mls/hr Insulin Aspart (Novolog) 0 unit SC ACHS [facility] PRN Reason: Protocol Last Admin: 05/13/16 08:14 Dose: Not Given Metoprolol Tartrate (Lopressor) 25 mg PO BID [facility] Last Admin: 05/12/16 18:20 Dose: 25 mg Pantoprazole Sodium (Protonix Inj) 40 mg IVP DAILY [facility] Last Admin: 05/12/16 11:19 Dose: 40 mg Pneumococcal Polyvalent Vaccine (Pneumovax 23 Vaccine) 0.5 ml IM .ONCE ONE Stop: 05/14/16 10:01 Quetiapine Fumarate (Seroquel) 25 mg PO HS [facility] Last Admin: 05/12/16 21:33 Dose: 25 mg Tamsulosin HCl (Flomax) 0.4 mg PO DAILY [facility] Last Admin: 05/12/16 11:19 Dose: 0.4 mg - Labs Labs: 05/12/16 06:42 05/12/16 06:42 PT 11.8 SECONDS (9.7-12.2) 05/12/16 00:14 INR 1.1 05/12/16 00:14 APTT 25 SECONDS (21-34) 05/12/16 00:14 - Constitutional Appears: Non-toxic, No Acute Distress - Eye Exam Eye Exam: EOMI, PERRL - ENT Exam ENT Exam: Mucous Membranes Moist - Respiratory Exam Respiratory Exam: Clear to Ausculation Bilateral. absent: Rales, Rhonchi, Wheezes - Cardiovascular Exam Cardiovascular Exam: RRR, +S1, +S2 - GI/Abdominal Exam GI & Abdominal Exam: Soft, Normal Bowel Sounds. absent: Distended, Firm, Guarding, Rigid, Tenderness, Organomegaly - Extremities Exam Extremities Exam: Normal Inspection. absent: Pedal Edema - Neurological Exam Neurological Exam: Alert, Awake. absent: Oriented x3 - Psychiatric Exam Psychiatric exam: Normal Affect, Normal Mood - Skin Skin Exam: Dry, Warm Assessment and Plan - Assessment and Plan (Free Text) Assessment: Patient is an 80yo male with PMHx significant for Alzheimer's dementia, CAD s/p CABG, CHF with EF 25%, diverticulosis, HTN, Rain's esophagus with low grade dysplasia, H pylori gastritis who presented from sn[facility] with complaint of rectal bleeding and abnormal lab work. -Acute blood loss anemia -Acute renal insufficiency -Hematochezia; suspect diverticular bleeding given known history and recent colonoscopy -Rain's esophagus with low grade dysplasia -CAD/CABG/CHF (EF 25%) -H pylori gastritis, unclear if treated previously Plan: -Medical optimization prior to endoscopic intervention; awaiting cardiac clearance for EGD/colonoscopy - their w/u is pending -Nephrology following for LORETTA, gentle hydration given history of CHF -Continue with clear liquid diet -Endoscopic evaluation pending clearance, plan for -CBC/BMP ordered -Pathology from prior endoscopic evaluation reviewed -Continue once daily PPI -It does not appear patient has been treated for H pylori, will biopsy during repeat EGD and treat with triple therapy as indicated <Donovan Joseph - Last Filed: 05/13/16 08:35> Objective - Vital Signs/Intake and Output Vital Signs (last 24 hours): Temp Pulse Resp BP Pulse Ox 98.3 F 80 20 114/69 98 05/13/16 07:33 05/13/16 07:33 05/13/16 07:33 05/13/16 07:33 05/13/16 07:33 Intake and Output: 05/13/16 05/13/16 06:59 18:59 Intake Total 1230 Balance 1230 - Medications Medications: Current Medications Albuterol/Ipratropium (Duoneb 3 Mg/0.5 Mg (3 Ml) Ud) 3 ml INH RQ6 [facility] Last Admin: 05/13/16 01:35 Dose: Not Given Clonazepam (Klonopin- Half Tab) 0.25 mg PO BID [facility] Last Admin: 05/12/16 18:22 Dose: 0.25 mg Donepezil HCl (Aricept) 10 mg PO HS [facility] Last Admin: 05/12/16 21:33 Dose: 10 mg Guaifenesin (Robitussin) 200 mg PO Q4H PRN PRN Reason: Cough and congestion Sodium Chloride (Sodium Chloride 0.9%) 1,000 mls @ 60 mls/hr IV .[id number] [facility] Last Admin: 05/12/16 22:48 Dose: Not Given Sodium Chloride (Sodium Chloride 0.45%) 1,000 mls @ 50 mls/hr IV .Q20H [facility] Last Admin: 05/12/16 16:09 Dose: 50 mls/hr Insulin Aspart (Novolog) 0 unit SC ACHS [facility] PRN Reason: Protocol Last Admin: 05/13/16 08:14 Dose: Not Given Metoprolol Tartrate (Lopressor) 25 mg PO BID [facility] Last Admin: 05/12/16 18:20 Dose: 25 mg Pantoprazole Sodium (Protonix Inj) 40 mg IVP DAILY [facility] Last Admin: 05/12/16 11:19 Dose: 40 mg Pneumococcal Polyvalent Vaccine (Pneumovax 23 Vaccine) 0.5 ml IM .ONCE ONE Stop: 05/14/16 10:01 Quetiapine Fumarate (Seroquel) 25 mg PO HS [facility] Last Admin: 05/12/16 21:33 Dose: 25 mg Tamsulosin HCl (Flomax) 0.4 mg PO DAILY [facility] Last Admin: 05/12/16 11:19 Dose: 0.4 mg - Labs Labs: 05/12/16 06:42 05/12/16 06:42 PT 11.8 SECONDS (9.7-12.2) 05/12/16 00:14 INR 1.1 05/12/16 00:14 APTT 25 SECONDS (21-34) 05/12/16 00:14 Attending/Attestation - Attestation I have personally seen and examined this patient.: Yes I have fully participated in the care of the patient.: Yes I have reviewed all pertinent clinical information, including history, physical exam and plan: Yes Notes (Text): 05/13/16 08:28 I have seen and examined patient with GI fellow. No acute events overnight, according to nursing staff patient had one non-bloody, foul smelling bowel movement overnight. He denies abdominal pain, nausea, vomiting, fever/chills. Tolerating PO liquid diet without difficulty. Review of vitals from today are normal. CAD/CABG CHF Acute renal insufficiency HTN Rectal bleeding - H/H stable, continue to monitor - Continue with liquid diet as tolerated - Awaiting results of stool studies - Follow up renal recommendations, monitor creatinine - Follow up cardiology recommendations, echocardiogram ordered - Patient with prior colonoscopy in October 2015 showing suboptimal bowel preparation and EGD showing helicobacter pylori associated gastritis with low grade dysplastic lesion in gastric cardia. Will plan on repeat endoscopic evaluation following medical optimization, will continue to monitor patient clinical course.
[2016-05-13] MEDS: clonazePAM 0.25 MG TAB PO SCH ×2 (10:36→17:29)
[2016-05-13] MEDS: Sodium Chloride 0.45% 1,000 ML IV SCH ×2 (10:37→21:11)
[2016-05-13 11:17] LABS: BASO % 0.8 % (0.0-2.0); EOS # 0.2 K/uL (0.0-0.7); EOS % 3.9 % (0.0-4.0); HEMATOCRIT 31.4 % (35.0-51.0); LYMPH # 0.8 K/uL (1.0-4.3); LYMPH % 13.6 % (20.0-40.0); MEAN CORPUSCULAR HEMOGLOBIN 31.3 pg (27.0-31.0); MEAN CORPUSCULAR HGB CONC 33.2 g/dL (33.0-37.0); MEAN PLATELET VOLUME 8.4 fL (7.2-11.7); MONO # 0.9 K/uL (0.0-0.8); MONO % 15.3 % (0.0-10.0); RED CELL DISTRIBUTION WIDTH 12.8 % (11.5-14.5); WHITE BLOOD COUNT 5.9 K/uL (4.8-10.8)
[2016-05-13 11:22] LABS: POTASSIUM 4.7 mmol/L (3.6-5.2)
[2016-05-13 11:26] LABS: CALCIUM 8.6 mg/dl (8.6-10.4)
--- NOTE | 2016-05-13 12:21 | CP.PCM.PN ---
Subjective - Date & Time of Evaluation Date of Evaluation: 05/13/16 Time of Evaluation: 12:20 - Subjective Subjective: awake,alert & oriented.sitting in chair in nad. Objective - Vital Signs/Intake and Output Vital Signs (last 24 hours): Temp Pulse Resp BP Pulse Ox 98.3 F 80 20 114/69 98 05/13/16 07:33 05/13/16 07:33 05/13/16 07:33 05/13/16 10:36 05/13/16 07:33 Intake and Output: 05/13/16 05/13/16 06:59 18:59 Intake Total 1230 Balance 1230 - Medications Medications: Current Medications Albuterol/Ipratropium (Duoneb 3 Mg/0.5 Mg (3 Ml) Ud) 3 ml INH RQ6 [facility] Last Admin: 05/13/16 08:29 Dose: 3 ml Clonazepam (Klonopin- Half Tab) 0.25 mg PO BID [facility] Last Admin: 05/13/16 10:36 Dose: 0.25 mg Donepezil HCl (Aricept) 10 mg PO [facility] Last Admin: 05/12/16 21:33 Dose: 10 mg Guaifenesin (Robitussin) 200 mg PO Q4H PRN PRN Reason: Cough and congestion Insulin Aspart (Novolog) 0 unit SC ACHS [facility] PRN Reason: Protocol Last Admin: 05/13/16 08:14 Dose: Not Given Metoprolol Tartrate (Lopressor) 25 mg PO BID [facility] Last Admin: 05/13/16 10:36 Dose: 25 mg Pantoprazole Sodium (Protonix Inj) 40 mg IVP DAILY [facility] Last Admin: 05/13/16 10:35 Dose: 40 mg Pneumococcal Polyvalent Vaccine (Pneumovax 23 Vaccine) 0.5 ml IM .ONCE ONE Stop: 05/14/16 10:01 Quetiapine Fumarate (Seroquel) 25 mg PO HS [facility] Last Admin: 05/12/16 21:33 Dose: 25 mg Tamsulosin HCl (Flomax) 0.4 mg PO DAILY [facility] Last Admin: 05/13/16 10:36 Dose: 0.4 mg - Labs Labs: 05/13/16 11:06 05/13/16 11:06 PT 11.8 SECONDS (9.7-12.2) 05/12/16 00:14 INR 1.1 05/12/16 00:14 APTT 25 SECONDS (21-34) 05/12/16 00:14 - Constitutional Appears: No Acute Distress - Head Exam Head Exam: NORMOCEPHALIC - Eye Exam Eye Exam: Normal appearance - Neck Exam Neck Exam: Normal Inspection - Respiratory Exam Respiratory Exam: Clear to Ausculation Bilateral - Cardiovascular Exam Cardiovascular Exam: REGULAR RHYTHM - GI/Abdominal Exam GI & Abdominal Exam: Soft - Extremities Exam Extremities Exam: absent: Pedal Edema - Neurological Exam Neurological Exam: Alert, Oriented x3 Assessment and Plan - Assessment and Plan (Free Text) Assessment: stable cardiac pickens.cleared for gi w/u at low risk.improving renal status.
--- NOTE | 2016-05-13 19:51 | CP.PCM.PN ---
Subjective - Date & Time of Evaluation Date of Evaluation: 05/13/16 Time of Evaluation: 19:51 - Subjective Subjective: pt seen and examined, follow up consult is dictated #[id number] ivf 1/2 ns at 50 ml/hr x 24 hrs bmp in am Objective - Vital Signs/Intake and Output Vital Signs (last 24 hours): Temp Pulse Resp BP Pulse Ox 98.3 F 80 20 114/69 98 05/13/16 07:33 05/13/16 16:01 05/13/16 07:33 05/13/16 17:29 05/13/16 07:33 Intake and Output: 05/13/16 05/14/16 18:59 06:59 Intake Total 240 Balance 240 - Medications Medications: Current Medications Albuterol/Ipratropium (Duoneb 3 Mg/0.5 Mg (3 Ml) Ud) 3 ml INH RQ6 [facility] Last Admin: 05/13/16 19:17 Dose: 3 ml Clonazepam (Klonopin- Half Tab) 0.25 mg PO BID [facility] Last Admin: 05/13/16 17:29 Dose: 0.25 mg Donepezil HCl (Aricept) 10 mg PO HS [facility] Last Admin: 05/12/16 21:33 Dose: 10 mg Guaifenesin (Robitussin) 200 mg PO Q4H PRN PRN Reason: Cough and congestion Insulin Aspart (Novolog) 0 unit SC ACHS [facility] PRN Reason: Protocol Last Admin: 05/13/16 16:55 Dose: Not Given Metoprolol Tartrate (Lopressor) 25 mg PO BID [facility] Last Admin: 05/13/16 17:29 Dose: 25 mg Pantoprazole Sodium (Protonix Inj) 40 mg IVP DAILY [facility] Last Admin: 05/13/16 10:35 Dose: 40 mg Pneumococcal Polyvalent Vaccine (Pneumovax 23 Vaccine) 0.5 ml IM .ONCE ONE Stop: 05/14/16 10:01 Quetiapine Fumarate (Seroquel) 25 mg PO HS [facility] Last Admin: 05/12/16 21:33 Dose: 25 mg Tamsulosin HCl (Flomax) 0.4 mg PO DAILY [facility] Last Admin: 05/13/16 10:36 Dose: 0.4 mg - Labs Labs: 05/13/16 11:06 05/13/16 11:06 PT 11.8 SECONDS (9.7-12.2) 05/12/16 00:14 INR 1.1 05/12/16 00:14 APTT 25 SECONDS (21-34) 05/12/16 00:14
--- NOTE | 2016-05-13 20:56 | PN ---
DATE: 05/13/2016 The patient is located in room 358, bed A. HISTORY OF PRESENT ILLNESS: The patient is an 81-year-old elderly male with a history of longstanding hypertension, dementia, coronary artery disease, congestive heart failure, cardiomyopathy who was admitted from the assisted with abnormal BUN and creatinine, dehydration and hyperkalemia. The patient is not in acute distress. Denies any shortness of breath. Denies any chest pain, palpitation. Denies any fever, cough, no abdominal pain, no nausea, vomiting, diarrhea. No edema of the legs. PHYSICAL EXAMINATION: VITAL SIGNS: As follows: Blood pressure 114/69, pulse 88, respirations 20, temperature 98.3, saturation 98%. Height 5 feet 5 inches and weight is 120 pounds. GENERAL: The patient is an 81-year-old elderly male, moderately built , moderately nourished, not in acute distress. HEENT: Pupils normal, reactive to light and accommodation. Conjunctivae pink. Sclerae anicteric. Tongue is moist. NECK: Trachea is midline. LUNGS: Symmetric on both sides. Bilateral breath sounds present. Clear on auscultation. CARDIOVASCULAR: [place] in the fifth intercostal space midclavicular line. S1 and S2 audible. No murmur, no gallop. ABDOMEN: Normal in appearance, soft, tympanic. No guarding, no rigidity, no hepatosplenomegaly. CENTRAL NERVOUS SYSTEM: The patient is alert, awake, oriented x 2. Sensory and motor system is within normal limits. Cranial nerves II through XII grossly intact. EXTREMITIES: No cyanosis, no clubbing, no edema. CURRENT MEDICATIONS: Include as follows: Albuterol inhaler discontinued, Aricept 10 mg at bedtime, DuoNeb inhaler q. 6 hours, Flomax 0.4 mg p.o. daily, clonazepam 0.25 mg p.o. b.i.d., metoprolol 25 mg p.o. b.i.d. and insulin aspart for sliding scale, pneumococcal vaccine x 1, Protonix 40 mg IV daily, Robitussin 200 mg p.o. q. 4 hours, Seroquel 25 mg p.o. at bedtime. LABORATORY DATA: Include as follows: As of 05/13/2016, WBC 5.9, hemoglobin 10.4 , hematocrit is 31.4, platelets 220. Sodium 133, potassium 4.7, chloride 99, CO2 18, BUN 69, creatinine 1.8, glucose 300, calcium 8.6. SUMMARY: The patient is an 81-year-old elderly male with a history of hypertension, dementia, diabetes, coronary artery disease, cardiomyopathy, was admitted with hyperkalemia, acute renal failure and intravascular depletion. 1. Acute on chronic kidney disease secondary to intravascular depletion secondary to decreased p.o. intake and diuretics. 2. Dehydration. 3. Cardiomyopathy. Renal function is improving nicely and we will continue IV fluids half normal saline at 50 mL for another 24 hours and then discontinue. Repeat BMP in a.m. We will follow with you. Thank you for allowing me to participate in your patient's care. Discussed with Dr. Pink on rounds. Sourav Rowley MD cc: [id number] TT: 05/13/2016 20:55:30 Confirmation # [id number] Dictation # [id number] cris EDDY
--- NOTE | 2016-05-14 01:09 | CP.PCM.PN ---
Subjective - Date & Time of Evaluation Date of Evaluation: 05/13/16 Time of Evaluation: 10:10 - Subjective Subjective: Pt seen and evaluated at bedside, is improving, BUn/creatinie went down Objective - Vital Signs/Intake and Output Vital Signs (last 24 hours): Temp Pulse Resp BP Pulse Ox 97.6 F 83 20 118/70 100 05/13/16 23:53 05/13/16 23:53 05/13/16 23:53 05/13/16 23:53 05/13/16 23:53 Intake and Output: 05/13/16 05/14/16 18:59 06:59 Intake Total 240 Balance 240 - Medications Medications: Current Medications Albuterol/Ipratropium (Duoneb 3 Mg/0.5 Mg (3 Ml) Ud) 3 ml INH RQ6 COUNTS [facility]CLUDE 234 BEDS AT THE [facility] Last Admin: 05/13/16 19:17 Dose: 3 ml Clonazepam (Klonopin- Half Tab) 0.25 mg PO BID COUNTS INCLUDE 234 BEDS AT THE [facility] Last Admin: 05/13/16 17:29 Dose: 0.25 mg Donepezil HCl (Aricept) 10 mg PO [facility] Last Admin: 05/13/16 21:12 Dose: 10 mg Guaifenesin (Robitussin) 200 mg PO Q4H PRN PRN Reason: Cough and congestion Sodium Chloride (Sodium Chloride 0.45%) 1,000 mls @ 50 mls/hr IV .Q20H COUNTS INCLUDE 234 BEDS AT THE [facility] Stop: 05/14/16 20:31 Last Admin: 05/13/16 21:11 Dose: 50 mls/hr Insulin Aspart (Novolog) 0 unit SC ACHS COUNTS INCLUDE 234 BEDS AT THE [facility] PRN Reason: Protocol Last Admin: 05/13/16 21:30 Dose: Not Given Metoprolol Tartrate (Lopressor) 25 mg PO BID COUNTS INCLUDE 234 BEDS AT THE [facility] Last Admin: 05/13/16 17:29 Dose: 25 mg Pantoprazole Sodium (Protonix Inj) 40 mg IVP DAILY COUNTS INCLUDE 234 BEDS AT THE [facility] Last Admin: 05/13/16 10:35 Dose: 40 mg Pneumococcal Polyvalent Vaccine (Pneumovax 23 Vaccine) 0.5 ml IM .ONCE ONE Stop: 05/14/16 10:01 Quetiapine Fumarate (Seroquel) 25 mg PO HS COUNTS INCLUDE 234 BEDS AT THE [facility] Last Admin: 05/13/16 21:11 Dose: 25 mg Tamsulosin HCl (Flomax) 0.4 mg PO DAILY [facility] Last Admin: 05/13/16 10:36 Dose: 0.4 mg - Labs Labs: 05/13/16 11:06 05/13/16 11:06 PT 11.8 SECONDS (9.7-12.2) 05/12/16 00:14 INR 1.1 05/12/16 00:14 APTT 25 SECONDS (21-34) 05/12/16 00:14 - Constitutional Appears: No Acute Distress - Head Exam Head Exam: ATRAUMATIC, NORMAL INSPECTION, NORMOCEPHALIC - Eye Exam Eye Exam: EOMI, Normal appearance, PERRL Pupil Exam: NORMAL ACCOMODATION, PERRL - Respiratory Exam Respiratory Exam: Clear to Ausculation Bilateral, NORMAL BREATHING PATTERN - Cardiovascular Exam Cardiovascular Exam: REGULAR RHYTHM, +S1, +S2. absent: Murmur - GI/Abdominal Exam GI & Abdominal Exam: Soft, Normal Bowel Sounds. absent: Tenderness Assessment and Plan (1) Dementia Status: Chronic (2) Hypertension Status: Chronic (3) Rectal bleeding Status: Resolved
[2016-05-14] MEDS: Albuterol-Ipratrop 3 mg / 0.5 (3 ml) UD INH SCH ×4 (02:24→19:00)
[2016-05-14 06:00] LABS: BASO # 0.1 K/uL (0.0-0.2); EOS # 0.4 K/uL (0.0-0.7); HEMATOCRIT 30.9 % (35.0-51.0); LYMPH # 1.1 K/uL (1.0-4.3); LYMPH % 19.1 % (20.0-40.0); MEAN CELL VOLUME 92.5 fL (80.0-94.0); MEAN CORPUSCULAR HEMOGLOBIN 31.3 pg (27.0-31.0); MEAN CORPUSCULAR HGB CONC 33.8 g/dL (33.0-37.0); MONO % 16.2 % (0.0-10.0); RED CELL DISTRIBUTION WIDTH 12.6 % (11.5-14.5); WHITE BLOOD COUNT 5.9 K/uL (4.8-10.8)
[2016-05-14 06:07] LABS: POTASSIUM 4.8 mmol/L (3.6-5.2)
[2016-05-14 06:11] LABS: CALCIUM 8.4 mg/dl (8.6-10.4)
--- NOTE | 2016-05-14 07:28 | CP.PCM.PN ---
<Jose Ariza - Last Filed: 05/14/16 09:38> Subjective - Date & Time of Evaluation Date of Evaluation: 05/14/16 Time of Evaluation: 07:26 - Subjective Subjective: PGY4 GI Fellow Progress Note Patient seen and examined bedside this morning. The patient denies any complaints at present. He has not had any further episodes of hematochezia or melena per staff and patient. Denies any abdominal pain, nausea, vomiting, fever , chills. Of note, the patient's listed next of kin is incorrect. The patient's decision maker is his flavio Simmons with phone numbers listed below: Flavio Simmons [phone] Alternate contact is patient's nephew: [phone] 12 system ROS limited in setting of dementia. Objective - Vital Signs/Intake and Output Vital Signs (last 24 hours): Temp Pulse Resp BP Pulse Ox 97.6 F 83 20 118/70 100 05/13/16 23:53 05/14/16 01:45 05/13/16 23:53 05/13/16 23:53 05/13/16 23:53 Intake and Output: 05/14/16 05/14/16 06:59 18:59 Intake Total 520 Balance 520 - Medications Medications: Current Medications Albuterol/Ipratropium (Duoneb 3 Mg/0.5 Mg (3 Ml) Ud) 3 ml INH RQ6 [facility] Last Admin: 05/14/16 02:24 Dose: 3 ml Bisacodyl (Dulcolax) 20 mg PO ONCE ONE Stop: 05/14/16 12:01 Clonazepam (Klonopin- Half Tab) 0.25 mg PO BID [facility] Last Admin: 05/13/16 17:29 Dose: 0.25 mg Donepezil HCl (Aricept) 10 mg PO HS [facility] Last Admin: 05/13/16 21:12 Dose: 10 mg Guaifenesin (Robitussin) 200 mg PO Q4H PRN PRN Reason: Cough and congestion Sodium Chloride (Sodium Chloride 0.45%) 1,000 mls @ 50 mls/hr IV .Q20H [facility] Stop: 05/14/16 20:31 Last Admin: 05/13/16 21:11 Dose: 50 mls/hr Insulin Aspart (Novolog) 0 unit SC ACHS [facility] PRN Reason: Protocol Last Admin: 05/13/16 21:30 Dose: Not Given Metoprolol Tartrate (Lopressor) 25 mg PO BID [facility] Last Admin: 05/13/16 17:29 Dose: 25 mg Pantoprazole Sodium (Protonix Inj) 40 mg IVP DAILY [facility] Last Admin: 05/13/16 10:35 Dose: 40 mg Pneumococcal Polyvalent Vaccine (Pneumovax 23 Vaccine) 0.5 ml IM .ONCE ONE Stop: 05/14/16 10:01 Polyethylene Glycol/Electrolytes (Golytely) 4,000 ml PO ONCE ONE Stop: 05/14/16 14:01 Quetiapine Fumarate (Seroquel) 25 mg PO HS [facility] Last Admin: 05/13/16 21:11 Dose: 25 mg Tamsulosin HCl (Flomax) 0.4 mg PO DAILY [facility] Last Admin: 05/13/16 10:36 Dose: 0.4 mg - Labs Labs: 05/14/16 05:54 05/14/16 05:54 PT 11.8 SECONDS (9.7-12.2) 05/12/16 00:14 INR 1.1 05/12/16 00:14 APTT 25 SECONDS (21-34) 05/12/16 00:14 - Constitutional Appears: Non-toxic, No Acute Distress - Eye Exam Eye Exam: EOMI, PERRL - ENT Exam ENT Exam: Mucous Membranes Moist - Respiratory Exam Respiratory Exam: Clear to Ausculation Bilateral. absent: Rales, Rhonchi, Wheezes - Cardiovascular Exam Cardiovascular Exam: RRR, +S1, +S2 - GI/Abdominal Exam GI & Abdominal Exam: Soft, Normal Bowel Sounds. absent: Distended, Firm, Guarding, Rigid, Tenderness, Organomegaly - Extremities Exam Extremities Exam: Normal Inspection. absent: Pedal Edema - Neurological Exam Neurological Exam: Alert, Awake. absent: Oriented x3 - Psychiatric Exam Psychiatric exam: Normal Affect, Normal Mood - Skin Skin Exam: Dry, Warm Assessment and Plan - Assessment and Plan (Free Text) Assessment: Patient is an 80yo male with PMHx significant for Alzheimer's dementia, CAD s/p CABG, CHF with EF 25%, diverticulosis, HTN, Rain's esophagus with low grade dysplasia, H pylori gastritis who [facility] complaint of rectal bleeding and abnormal lab work. -Acute blood loss anemia -Acute renal insufficiency -Hematochezia; suspect diverticular bleeding given known history and recent colonoscopy -GEJ nodule with LGD, ? Rain's esophagus vs related to changes of HP gastritis -CAD/CABG/CHF (EF 25%) -H pylori gastritis, unclear if treated previously Plan: -LORETTA improved -Cardiology clearance noted for EGD/Colonoscopy - appreciate note and evaluation -Unfortunately, the patient's next of kin which is listed in the chart is incorrect; update and information listed below -Continue with clear liquid diet, NPO past MN -Plan for EGD/Colonoscopy tomorrow pending consent - patient not decisionally capable to consent for procedure; telephone consent obtained from patient's niece -H/H stable, unchanged - no episodes of hematochezia/melena -Continue once daily PPI -It does not appear patient has been treated for H pylori, will biopsy during repeat EGD and treat with triple therapy as indicated Contacts: Niece - Meghna Simmons [phone] Alternate contact is patient's nephew: [phone] <Yane Laughlin - Last Filed: 05/14/16 10:09> Objective - Vital Signs/Intake and Output Vital Signs (last 24 hours): Temp Pulse Resp BP Pulse Ox 97.4 F L 92 H 20 115/72 98 05/14/16 07:29 05/14/16 07:29 05/14/16 07:29 05/14/16 07:29 05/14/16 07:29 Intake and Output: 05/14/16 05/14/16 06:59 18:59 Intake Total 520 Balance 520 - Medications Medications: Current Medications Albuterol/Ipratropium (Duoneb 3 Mg/0.5 Mg (3 Ml) Ud) 3 ml INH RQ6 [facility] Last Admin: 05/14/16 08:18 Dose: 3 ml Bisacodyl (Dulcolax) 20 mg PO ONCE ONE Stop: 05/14/16 12:01 Clonazepam (Klonopin- Half Tab) 0.25 mg PO BID [facility] Last Admin: 05/13/16 17:29 Dose: 0.25 mg Donepezil HCl (Aricept) 10 mg PO HS [facility] Last Admin: 05/13/16 21:12 Dose: 10 mg Guaifenesin (Robitussin) 200 mg PO Q4H PRN PRN Reason: Cough and congestion Sodium Chloride (Sodium Chloride 0.45%) 1,000 mls @ 50 mls/hr IV .Q20H [facility] Stop: 05/14/16 20:31 Last Admin: 05/13/16 21:11 Dose: 50 mls/hr Insulin Aspart (Novolog) 0 unit SC ACHS [facility] PRN Reason: Protocol Last Admin: 05/14/16 08:33 Dose: Not Given Metoprolol Tartrate (Lopressor) 25 mg PO BID [facility] Last Admin: 05/13/16 17:29 Dose: 25 mg Pantoprazole Sodium (Protonix Inj) 40 mg IVP DAILY [facility] Last Admin: 05/13/16 10:35 Dose: 40 mg Polyethylene Glycol/Electrolytes (Golytely) 4,000 ml PO ONCE ONE Stop: 05/14/16 14:01 Quetiapine Fumarate (Seroquel) 25 mg PO [facility] Last Admin: 05/13/16 21:11 Dose: 25 mg Tamsulosin HCl (Flomax) 0.4 mg PO DAILY [facility] Last Admin: 05/13/16 10:36 Dose: 0.4 mg - Labs Labs: 05/14/16 05:54 05/14/16 05:54 PT 11.8 SECONDS (9.7-12.2) 05/12/16 00:14 INR 1.1 05/12/16 00:14 APTT 25 SECONDS (21-34) 05/12/16 00:14 Attending/Attestation - Attestation I have personally seen and examined this patient.: Yes I have fully participated in the care of the patient.: Yes I have reviewed all pertinent clinical information, including history, physical exam and plan: Yes Notes (Text): Patient seen and examined with GI fellow. Agree with his note as documented above with the following additions/exceptions. 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 He has stool occult positive anemia. He has had no further bleeding episodes and hemoglobin is stable. He would benefit from repeat endoscopic evaluation with EGD/ colonoscopy. Will discuss with next of kin and if consents, plan for endoscopic investigation. 05/14/16 10:06
[2016-05-14] MEDS: (Novolog) Insulin Aspart, Recombinant 100 u/ml 10 ml vial SC SCH ×4 (08:33→22:00)
[2016-05-14] MEDS ORDERED: Pneumococcal 23-Valent Vaccine IM ONE (10:00)
[2016-05-14] MEDS: clonazePAM 0.25 MG TAB PO SCH ×2 (11:17→17:18)
--- NOTE | 2016-05-14 11:58 | CP.PCM.PN ---
Subjective - Date & Time of Evaluation Date of Evaluation: 05/14/16 Time of Evaluation: 11:55 - Subjective Subjective: ok. Objective - Vital Signs/Intake and Output Vital Signs (last 24 hours): Temp Pulse Resp BP Pulse Ox 97.4 F L 92 H 20 115/72 98 05/14/16 07:29 05/14/16 07:29 05/14/16 07:29 05/14/16 11:17 05/14/16 07:29 Intake and Output: 05/14/16 05/14/16 06:59 18:59 Intake Total 520 Balance 520 - Medications Medications: Current Medications Albuterol/Ipratropium (Duoneb 3 Mg/0.5 Mg (3 Ml) Ud) 3 ml INH RQ6 [facility] Last Admin: 05/14/16 08:18 Dose: 3 ml Bisacodyl (Dulcolax) 20 mg PO ONCE ONE Stop: 05/14/16 12:01 Clonazepam (Klonopin- Half Tab) 0.25 mg PO BID [facility] Last Admin: 05/14/16 11:17 Dose: 0.25 mg Donepezil HCl (Aricept) 10 mg PO HS [facility] Last Admin: 05/13/16 21:12 Dose: 10 mg Guaifenesin (Robitussin) 200 mg PO Q4H PRN PRN Reason: Cough and congestion Sodium Chloride (Sodium Chloride 0.45%) 1,000 mls @ 50 mls/hr IV .Q20H [facility] Stop: 05/14/16 20:31 Last Admin: 05/13/16 21:11 Dose: 50 mls/hr Insulin Aspart (Novolog) 0 unit SC ACHS [facility] PRN Reason: Protocol Last Admin: 05/14/16 08:33 Dose: Not Given Metoprolol Tartrate (Lopressor) 25 mg PO BID [facility] Last Admin: 05/14/16 11:17 Dose: 25 mg Pantoprazole Sodium (Protonix Inj) 40 mg IVP DAILY [facility] Last Admin: 05/14/16 11:17 Dose: 40 mg Polyethylene Glycol/Electrolytes (Golytely) 4,000 ml PO ONCE ONE Stop: 05/14/16 14:01 Quetiapine Fumarate (Seroquel) 25 mg PO HS [facility] Last Admin: 05/13/16 21:11 Dose: 25 mg Tamsulosin HCl (Flomax) 0.4 mg PO DAILY [facility] Last Admin: 05/14/16 11:17 Dose: 0.4 mg - Labs Labs: 05/14/16 05:54 05/14/16 05:54 PT 11.8 SECONDS (9.7-12.2) 05/12/16 00:14 INR 1.1 05/12/16 00:14 APTT 25 SECONDS (21-34) 05/12/16 00:14 - Constitutional Appears: In Acute Distress - Head Exam Head Exam: NORMOCEPHALIC - Eye Exam Eye Exam: Normal appearance - Respiratory Exam Respiratory Exam: Clear to Ausculation Bilateral - Cardiovascular Exam Cardiovascular Exam: REGULAR RHYTHM - GI/Abdominal Exam GI & Abdominal Exam: Soft Assessment and Plan - Assessment and Plan (Free Text) Assessment: stable cardiac pickens.
[2016-05-14] MEDS ORDERED: Bisacodyl 5mg EC Tab PO ONE (12:00)
[2016-05-14] MEDS ORDERED: Peg-Electrolyte Oral Soln 4L (Golytely) PO ONE (14:00)
--- NOTE | 2016-05-14 14:09 | CARD ---
APPROVED REPORT EXAM: Two-dimensional and M-mode echocardiogram with Doppler and color Doppler. INDICATION CAD RENAL INSUFFICIENCY HYPERKALEMIA RISK FACTORS Hypertension Hyperlipidemia M-Mode DIMENSIONS Left Atrium (MM)3.95 (2.5-4.0cm)IVSd0.78 (0.7-1.1cm) Aortic Root3.02 (2.2-3.7cm)LVDd6.51 (4.0-5.6cm) Aortic Cusp Exc.1.18 (1.5-2.0cm)PWd0.72 (0.7-1.1cm) FS (%) 20 %LVDs5.21 (2.0-3.8cm) LVEF (%)40 (>50%) Mitral Valve MV E Vrvlkpsr92.9cm/sMV A Aiswwteu462.8cm/sE/A ratio0.6 TDI E/Lateral E'0.0E/Medial E'0.0 Tricuspid Valve TR Peak Orvgkuch677xe/sTR Peak Gr.67ojXkFPHV90waNg LEFT VENTRICLE The Left Ventricle is moderately dilated. There is normal left ventricular wall thickness. Left ventricle systolic function is mildly impaired. The Ejection Fraction is 40-45%. There is global hypokinesis of the left ventricle. Tissue Doppler imaging reveals abnormal left ventricular diastolic dysfunction. RIGHT VENTRICLE The right ventricle is normal size. There is normal right ventricular wall thickness. The right ventricular systolic function is normal. ATRIA The left atrium size is normal. The right atrium size is normal. The interatrial septum is intact with no evidence for an atrial septal defect. AORTIC VALVE The aortic valve is normal in structure. There is mild aortic regurgitation. There is no aortic valvular stenosis. There is no aortic valvular vegetation. MITRAL VALVE The mitral valve is normal in structure. There is no evidence of mitral valve prolapse. There is no mitral valve stenosis. Mitral regurgitation is mild. TRICUSPID VALVE The tricuspid valve is normal in structure. There is trace to mild tricuspid regurgitation. Right ventricular systolic pressure is estimated at less than 30 mmHg. There is no pulmonary hypertension. PULMONIC VALVE The pulmonic valve is not well visualized. There is no pulmonic valvular regurgitation. GREAT VESSELS The aortic root is normal in size. PERICARDIAL EFFUSION There is no significant pericardial effusion. <Conclusion> Left ventricle systolic function is mildly impaired. The Ejection Fraction is 40-45%. Diastolic dysfunction. There is mild aortic regurgitation. Mitral regurgitation is mild. There is trace to mild tricuspid regurgitation. There is no pulmonary hypertension. There is no pulmonic valvular regurgitation.
[2016-05-14] MEDS: Sodium Chloride 0.45% 1,000 ML IV SCH (17:00)
--- NOTE | 2016-05-14 17:57 | CP.PCM.PN ---
Subjective - Date & Time of Evaluation Date of Evaluation: 05/14/16 Time of Evaluation: 17:56 - Subjective Subjective: pt seen and examined, follow up consult is dictated #[id number] Objective - Vital Signs/Intake and Output Vital Signs (last 24 hours): Temp Pulse Resp BP Pulse Ox 97.4 F L 92 H 20 120/70 98 05/14/16 07:29 05/14/16 07:29 05/14/16 07:29 05/14/16 17:20 05/14/16 07:29 Intake and Output: 05/14/16 05/14/16 06:59 18:59 Intake Total 520 880 Balance 520 880 - Medications Medications: Current Medications Albuterol/Ipratropium (Duoneb 3 Mg/0.5 Mg (3 Ml) Ud) 3 ml INH RQ6 [facility] Last Admin: 05/14/16 13:28 Dose: 3 ml Clonazepam (Klonopin- Half Tab) 0.25 mg PO BID [facility] Last Admin: 05/14/16 17:18 Dose: 0.25 mg Donepezil HCl (Aricept) 10 mg PO HS [facility] Last Admin: 05/13/16 21:12 Dose: 10 mg Guaifenesin (Robitussin) 200 mg PO Q4H PRN PRN Reason: Cough and congestion Sodium Chloride (Sodium Chloride 0.45%) 1,000 mls @ 50 mls/hr IV .Q20H [facility] Stop: 05/14/16 20:31 Last Admin: 05/13/16 21:11 Dose: 50 mls/hr Insulin Aspart (Novolog) 0 unit SC ACHS [facility] PRN Reason: Protocol Last Admin: 05/14/16 12:50 Dose: 3 unit Metoprolol Tartrate (Lopressor) 25 mg PO BID [facility] Last Admin: 05/14/16 17:20 Dose: 25 mg Pantoprazole Sodium (Protonix Inj) 40 mg IVP DAILY [facility] Last Admin: 05/14/16 11:17 Dose: 40 mg Quetiapine Fumarate (Seroquel) 25 mg PO HS [facility] Last Admin: 05/13/16 21:11 Dose: 25 mg Tamsulosin HCl (Flomax) 0.4 mg PO DAILY [facility] Last Admin: 05/14/16 11:17 Dose: 0.4 mg - Labs Labs: 05/14/16 05:54 05/14/16 05:54 PT 11.8 SECONDS (9.7-12.2) 05/12/16 00:14 INR 1.1 05/12/16 00:14 APTT 25 SECONDS (21-34) 05/12/16 00:14
--- NOTE | 2016-05-14 22:43 | PN ---
DATE: 05/14/2016 The patient is located in room 358, bed A. REQUESTED BY: Dr. Alvarado Pink. REASON FOR FOLLOWUP: Acute renal failure, cardiomyopathy. This is an 81-year-old elderly male with a history of long-standing hypertension, coronary artery disease, congestive heart failure, cardiomyopathy , dementia who was admitted from the alf with increased BUN, creatinine , and hyperkalemia. The patient is on IV fluids gentle hydration. Renal function slowly improving. The patient is out of bed to chair, not in acute distress, following commands appropriately, simple commands. Denies any chest pain, palpitation. Denies any fever or cough. No abdominal pain, no nausea, vomiting, diarrhea. VITAL SIGNS AND PHYSICAL EXAMINATION: As follows: His blood pressure 115/72, pulse 92, respirations 20, temperature 97.4, saturation 98%. Height 5 feet 5 inches, and weight is 120 pounds. HENT AND PHYSICAL EXAMINATION: The patient is an 81-year-old elderly male, moderately built, moderately nourished, not in distress. HENT: Pupils normal, reactive to light and accommodation. Conjunctivae pink, sclerae anicteric. Tongue is moist. Trachea is midline. LUNGS: Symmetric on both sides. Bilateral breath sounds present. Clear on auscultation. CARDIOVASCULAR SYSTEM: [place] at the fifth intercostal space midclavicular line. S1 and S2 audible. No murmur or gallop. ABDOMEN: Normal in appearance, soft, tympanic. No guarding, no rigidity. No hepatosplenomegaly. CENTRAL NERVOUS SYSTEM: The patient is alert, awake, oriented x 2. Sensory and motor system is grossly within normal limits. EXTREMITIES: No cyanosis, no clubbing, no edema. CURRENT MEDICATIONS: Include as follows: Aricept 10 mg at bedtime, and Dulcolax 20 mg p.o. x 1, DuoNeb inhaler q. 6 hours, and Flomax 0.4 mg p.o. daily ,, metoprolol 25 mg p.o. b.i.d., Protonix 40 mg IV daily, and Seroquel 25 mg p.o. at bedtime, and Robitussin 200 mg p.o. q. 4 hours p.r.n. LABORATORY DATA: Include as follows as of 05/14/2016: WBC 5.9, hemoglobin 10.5 , hematocrit is 30.9, platelets 234. Sodium 140, potassium 4.8, chloride 103, CO2 of 22, BUN 43, creatinine 1.4, glucose 118, calcium 8.4. Urine culture as of 05/13/2016: No growth. In summary, the patient is an 81-year-old elderly male with a history of hypertension, history of diabetes, coronary artery disease, BPH, dementia, CHF status post CABG, resident of a alf was admitted with increased BUN , creatinine, dehydration, and hyperkalemia. 1. Acute renal failure, most likely secondary to intravascular volume depletion , secondary to dehydration and diuretics. 2. Status post hyperkalemia secondary to LEV inhibitors and Aldactone. 3. Cardiomyopathy. 4. Hypertension. 5. Dementia. Renal function is slowly improving with gentle hydration and increase p.o. fluids. Repeat BMP in a.m. Will follow with you. Thank you for allowing me to participate in your patient's care. No further workup needed for renal failure at this time. Sourav Rowley MD cc: [id number] TT: 05/14/2016 22:42:41 Confirmation # [id number] Dictation # [id number] [id number]
--- NOTE | 2016-05-15 00:11 | CP.PCM.PN ---
Subjective - Date & Time of Evaluation Date of Evaluation: 05/14/16 Time of Evaluation: 10:20 - Subjective Subjective: Pt seen and examined, is in NAD, pt is for colonoscopy in am Objective - Vital Signs/Intake and Output Vital Signs (last 24 hours): Temp Pulse Resp BP Pulse Ox 97.4 F L 92 H 20 120/70 98 05/14/16 07:29 05/14/16 07:29 05/14/16 07:29 05/14/16 17:20 05/14/16 07:29 Intake and Output: 05/14/16 05/15/16 18:59 06:59 Intake Total 880 Balance 880 - Medications Medications: Current Medications Albuterol/Ipratropium (Duoneb 3 Mg/0.5 Mg (3 Ml) Ud) 3 ml INH RQ6 [facility] Last Admin: 05/14/16 19:00 Dose: 3 ml Clonazepam (Klonopin- Half Tab) 0.25 mg PO BID [facility] Last Admin: 05/14/16 17:18 Dose: 0.25 mg Donepezil HCl (Aricept) 10 mg PO HS [facility] Last Admin: 05/14/16 21:24 Dose: 10 mg Guaifenesin (Robitussin) 200 mg PO Q4H PRN PRN Reason: Cough and congestion Insulin Aspart (Novolog) 0 unit SC ACHS [facility] PRN Reason: Protocol Last Admin: 05/14/16 16:30 Dose: Not Given Metoprolol Tartrate (Lopressor) 25 mg PO BID [facility] Last Admin: 05/14/16 17:20 Dose: 25 mg Pantoprazole Sodium (Protonix Inj) 40 mg IVP DAILY [facility] Last Admin: 05/14/16 11:17 Dose: 40 mg Quetiapine Fumarate (Seroquel) 25 mg PO HS [facility] Last Admin: 05/14/16 21:24 Dose: 25 mg Tamsulosin HCl (Flomax) 0.4 mg PO DAILY [facility] Last Admin: 05/14/16 11:17 Dose: 0.4 mg - Labs Labs: 05/14/16 05:54 05/14/16 05:54 PT 11.8 SECONDS (9.7-12.2) 05/12/16 00:14 INR 1.1 05/12/16 00:14 APTT 25 SECONDS (21-34) 05/12/16 00:14 - Constitutional Appears: No Acute Distress - Head Exam Head Exam: ATRAUMATIC, NORMAL INSPECTION, NORMOCEPHALIC - Eye Exam Eye Exam: EOMI, Normal appearance, PERRL Pupil Exam: NORMAL ACCOMODATION, PERRL - ENT Exam ENT Exam: Mucous Membranes Moist, Normal Exam - Respiratory Exam Respiratory Exam: Clear to Ausculation Bilateral, NORMAL BREATHING PATTERN - Cardiovascular Exam Cardiovascular Exam: REGULAR RHYTHM, +S1, +S2. absent: Murmur - GI/Abdominal Exam GI & Abdominal Exam: Soft, Normal Bowel Sounds. absent: Tenderness - Rectal Exam Rectal Exam: Deferred Assessment and Plan (1) Dementia Status: Chronic (2) Hypertension Status: Chronic (3) Rectal bleeding Status: Resolved
[2016-05-15] MEDS: Albuterol-Ipratrop 3 mg / 0.5 (3 ml) UD INH SCH ×3 (02:09→14:50)
[2016-05-15 05:34] LABS: BASO # 0.1 K/uL (0.0-0.2); BASO % 0.9 % (0.0-2.0); EOS # 0.5 K/uL (0.0-0.7); EOS % 7.5 % (0.0-4.0); HEMATOCRIT 31.4 % (35.0-51.0); LYMPH # 1.3 K/uL (1.0-4.3); LYMPH % 19.2 % (20.0-40.0); MEAN CELL VOLUME 92.2 fL (80.0-94.0); MEAN CORPUSCULAR HEMOGLOBIN 31.4 pg (27.0-31.0); MEAN CORPUSCULAR HGB CONC 34.1 g/dL (33.0-37.0); MEAN PLATELET VOLUME 7.5 fL (7.2-11.7); MONO # 0.9 K/uL (0.0-0.8); MONO % 13.6 % (0.0-10.0); RED CELL DISTRIBUTION WIDTH 12.8 % (11.5-14.5); WHITE BLOOD COUNT 6.6 K/uL (4.8-10.8)
[2016-05-15 05:47] LABS: CHLORIDE 105 mmol/L (98-107); POTASSIUM 4.3 mmol/L (3.6-5.2); SODIUM 141 mmol/L (132-148)
[2016-05-15 05:50] LABS: GFR AFRICAN-AMERICAN > 60
[2016-05-15 05:51] LABS: BLOOD UREA NITROGEN 23 mg/dL (9-20); CALCIUM 8.4 mg/dl (8.6-10.4); CARBON DIOXIDE 21 mmol/L (22-30); GLUCOSE,RANDOM 122 mg/dL (75-110)
[2016-05-15] MEDS: clonazePAM 0.25 MG TAB PO SCH ×2 (09:43→17:05)
[2016-05-15] MEDS: (Novolog) Insulin Aspart, Recombinant 100 u/ml 10 ml vial SC SCH ×3 (09:45→17:07)
[2016-05-15] MEDS ORDERED: Etomidate 20 mg/10ml Inj IV ONE (12:17)
--- NOTE | 2016-05-15 14:58 | CP.PCM.PN ---
Subjective - Date & Time of Evaluation Date of Evaluation: 05/15/16 Time of Evaluation: 14:15 - Subjective Subjective: Pt seen and examined today , alert, denies any abdominal pain, N/V/d , tolerating diet post procedure s/p Colonoscopy / EGD today - Gastritis, single gastric polyp ( see full report for details) H&H- stable - 10.8 today CR- improved- 1.2<1.4<1.8<2.8<3.8 Objective - Vital Signs/Intake and Output Vital Signs (last 24 hours): Temp Pulse Resp BP Pulse Ox 97.1 F L 78 18 122/80 100 05/15/16 12:35 05/15/16 13:05 05/15/16 13:05 05/15/16 13:05 05/15/16 13:05 Intake and Output: 05/15/16 05/15/16 06:59 18:59 Intake Total 400 400 Output Total 1400 Balance 400 -1000 - Medications Medications: Current Medications Albuterol/Ipratropium (Duoneb 3 Mg/0.5 Mg (3 Ml) Ud) 3 ml INH RQ6 [facility] Last Admin: 05/15/16 14:50 Dose: 3 ml Clonazepam (Klonopin- Half Tab) 0.25 mg PO BID [facility] Last Admin: 05/15/16 09:43 Dose: 0.25 mg Donepezil HCl (Aricept) 10 mg PO HS [facility] Last Admin: 05/14/16 21:24 Dose: 10 mg Guaifenesin (Robitussin) 200 mg PO Q4H PRN PRN Reason: Cough and congestion Insulin Aspart (Novolog) 0 unit SC [facility] PRN Reason: Protocol Last Admin: 05/15/16 11:25 Dose: Not Given Metoprolol Tartrate (Lopressor) 25 mg PO BID [facility] Last Admin: 05/15/16 09:43 Dose: 25 mg Pantoprazole Sodium (Protonix Inj) 40 mg IVP DAILY [facility] Last Admin: 05/15/16 09:48 Dose: 40 mg Quetiapine Fumarate (Seroquel) 25 mg PO HS [facility] Last Admin: 05/14/16 21:24 Dose: 25 mg Tamsulosin HCl (Flomax) 0.4 mg PO DAILY [facility] Last Admin: 05/15/16 09:43 Dose: 0.4 mg - Labs Labs: 05/15/16 05:31 05/15/16 05:31 PT 11.8 SECONDS (9.7-12.2) 05/12/16 00:14 INR 1.1 05/12/16 00:14 APTT 25 SECONDS (21-34) 05/12/16 00:14 Assessment and Plan - Assessment and Plan (Free Text) Assessment: A/P 81 yr old male admitted for acute renal insufficiency/ rectal bleeding H& H - stable - BUN/CR- improved - s/p EGD/ colonoscopy today - negative for any bleeding- gastritis-, d/w Dr. Mna, cleared for discharge to [place] today from GI stand point D/w Dr. Pink, stable for discharge back to [place] today and Dr. Pink will follow the patient at [facility]
[2016-05-15 16:31] VITALS: BP 130/59; PULSE 74; RESP 20; TEMP 97.5; O2SAT 98
--- NOTE | 2016-05-15 19:07 | CP.PCM.PN ---
Subjective - Date & Time of Evaluation Date of Evaluation: 05/15/16 Time of Evaluation: 17:15 - Subjective Subjective: pt seen and examined, follow up consult is [id number] Objective - Vital Signs/Intake and Output Vital Signs (last 24 hours): Temp Pulse Resp BP Pulse Ox 97.5 F L 74 20 130/59 L 98 05/15/16 16:00 05/15/16 16:00 05/15/16 16:00 05/15/16 17:05 05/15/16 16:00 Intake and Output: 05/15/16 05/16/16 18:59 06:59 Intake Total 400 Output Total 1400 Balance -1000 - Medications Medications: Current Medications Albuterol/Ipratropium (Duoneb 3 Mg/0.5 Mg (3 Ml) Ud) 3 ml INH RQ6 [facility] Last Admin: 05/15/16 14:50 Dose: 3 ml Clonazepam (Klonopin- Half Tab) 0.25 mg PO BID [facility] Last Admin: 05/15/16 17:05 Dose: 0.25 mg Donepezil HCl (Aricept) 10 mg PO HS [facility] Last Admin: 05/14/16 21:24 Dose: 10 mg Guaifenesin (Robitussin) 200 mg PO Q4H PRN PRN Reason: Cough and congestion Insulin Aspart (Novolog) 0 unit SC ACHS [facility] PRN Reason: Protocol Last Admin: 05/15/16 17:07 Dose: 2 unit Metoprolol Tartrate (Lopressor) 25 mg PO BID [facility] Last Admin: 05/15/16 17:05 Dose: 25 mg Pantoprazole Sodium (Protonix Inj) 40 mg IVP DAILY [facility] Last Admin: 05/15/16 09:48 Dose: 40 mg Quetiapine Fumarate (Seroquel) 25 mg PO HS [facility] Last Admin: 05/14/16 21:24 Dose: 25 mg Tamsulosin HCl (Flomax) 0.4 mg PO DAILY [facility] Last Admin: 05/15/16 09:43 Dose: 0.4 mg - Labs Labs: 05/15/16 05:31 05/15/16 05:31 PT 11.8 SECONDS (9.7-12.2) 05/12/16 00:14 INR 1.1 05/12/16 00:14 APTT 25 SECONDS (21-34) 05/12/16 00:14
--- NOTE | 2016-05-15 22:21 | CP.PCM.DIS ---
Provider - Provider Date of Admission: 05/12/16 04:21 Attending physician: Alvarado Pink MD Time Spent in preparation of Discharge (in minutes): 30 Diagnosis - Discharge Diagnosis (1) Dementia Status: Chronic (2) Hypertension Status: Chronic (3) Rectal bleeding Status: Resolved Comment: due to hemmorhoids Hospital Course - Lab Results Lab Results: Micro Results 05/13/16 01:22 Urine,Clean Catch Urine Culture - Final No Growth (<1,000 CFU/ML) Most Recent Lab Values WBC 6.6 K/uL (4.8-10.8) 05/15/16 05:31 RBC 3.41 Mil/uL (4.40-5.90) L 05/15/16 05:31 Hgb 10.7 g/dL (12.0-18.0) L 05/15/16 05:31 Hct 31.4 % (35.0-51.0) L 05/15/16 05:31 MCV 92.2 fL (80.0-94.0) 05/15/16 05:31 MCH 31.4 pg (27.0-31.0) H 05/15/16 05:31 MCHC 34.1 g/dL (33.0-37.0) 05/15/16 05:31 RDW 12.8 % (11.5-14.5) 05/15/16 05:31 Plt Count 235 K/uL (130-400) 05/15/16 05:31 MPV 7.5 fL (7.2-11.7) 05/15/16 05:31 Neut % (Auto) 58.8 % (50.0-75.0) 05/15/16 05:31 Lymph % (Auto) 19.2 % (20.0-40.0) L 05/15/16 05:31 [place] % (Auto) 13.6 % (0.0-10.0) H 05/15/16 05:31 Eos % (Auto) 7.5 % (0.0-4.0) H 05/15/16 05:31 Baso % (Auto) 0.9 % (0.0-2.0) 05/15/16 05:31 Neut # 3.9 K/uL (1.8-7.0) 05/15/16 05:31 Lymph # 1.3 K/uL (1.0-4.3) 05/15/16 05:31 [place] # 0.9 K/uL (0.0-0.8) H 05/15/16 05:31 Eos # 0.5 K/uL (0.0-0.7) 05/15/16 05:31 Baso # 0.1 K/uL (0.0-0.2) 05/15/16 05:31 Neutrophils % (Manual) 61 % (50-75) 05/12/16 00:14 Band Neutrophils % 1 % (0-2) 05/12/16 00:14 Lymphocytes % (Manual) 16 % (20-40) L 05/12/16 00:14 Monocytes % (Manual) 19 % (0-10) H 05/12/16 00:14 Eosinophils % (Manual) 3 % (0-4) 05/12/16 00:14 Platelet Estimate Normal (NORMAL) 05/12/16 00:14 RBC Morphology Normal 05/12/16 00:14 PT 11.8 SECONDS (9.7-12.2) 05/12/16 00:14 INR 1.1 05/12/16 00:14 APTT 25 SECONDS (21-34) 05/12/16 00:14 Sodium 141 mmol/L (132-148) 05/15/16 05:31 Potassium 4.3 mmol/L (3.6-5.2) 05/15/16 05:31 Chloride 105 mmol/L (98-107) 05/15/16 05:31 Carbon Dioxide 21 mmol/L (22-30) L 05/15/16 05:31 Anion Gap 19 (10-20) 05/15/16 05:31 BUN 23 mg/dL (9-20) H 05/15/16 05:31 Creatinine 1.2 MG/DL (0.8-1.5) 05/15/16 05:31 Est GFR ( Amer) > 60 05/15/16 05:31 Est GFR (Non-Af Amer) 58 05/15/16 05:31 POC Glucose (mg/dL) 240 mg/dL (65-110) H 05/15/16 16:13 Random Glucose 122 mg/dL (75-110) H 05/15/16 05:31 Calcium 8.4 mg/dl (8.6-10.4) L 05/15/16 05:31 Iron 97 ug/dL (49-181) 05/12/16 06:42 TIBC 263 ug/dL (250-450) 05/12/16 06:42 % Saturation 37 (20-55) 05/12/16 06:42 Total Bilirubin 1.2 mg/dL (0.2-1.3) 05/12/16 00:14 AST 22 U/L (17-59) 05/12/16 00:14 ALT 18 U/L (21-72) L D 05/12/16 00:14 Alkaline Phosphatase 52 U/L (38-126) 05/12/16 00:14 Total Creatine Kinase 48 U/L (55-170) L 05/12/16 00:14 CK-MB (Mass) 1.57 ng/mL (0.0-3.38) 05/12/16 00:14 Troponin I 0.0300 ng/mL (0.00-0.120) 05/12/16 00:14 NT-Pro-B Natriuret Pep 3500 pg/mL (0-900) H 05/12/16 00:14 Total Protein 7.8 g/dL (6.3-8.3) 05/12/16 00:14 Albumin 4.1 g/dL (3.5-5.0) 05/12/16 00:14 Globulin 3.7 gm/dL (2.2-3.9) 05/12/16 00:14 Albumin/Globulin Ratio 1.1 (1.0-2.1) 05/12/16 00:14 Lipase 84 U/L (23-300) 05/12/16 00:14 Urine Color Yellow (YELLOW) 05/12/16 07:08 Urine Clarity Hazy (Clear) 05/12/16 07:08 Urine pH 5.0 (5.0-8.0) 05/12/16 07:08 Ur Specific Parachute 1.017 (1.003-1.030) 05/12/16 07:08 Urine Protein Negative mg/dL (NEGATIVE) 05/12/16 07:08 Urine Glucose (UA) Normal mg/dL (Normal) 05/12/16 07:08 Urine Ketones Negative mg/dL (NEGATIVE) 05/12/16 07:08 Urine Blood Negative (NEGATIVE) 05/12/16 07:08 Urine Nitrate Negative (NEGATIVE) 05/12/16 07:08 Urine Bilirubin Negative (NEGATIVE) 05/12/16 07:08 Urine Urobilinogen Normal mg/dL (0.2-1.0) 05/12/16 07:08 Ur Leukocyte Esterase Neg Jhonathan/uL (Negative) 05/12/16 07:08 Urine WBC (Auto) 2 /hpf (0-5) 05/12/16 07:08 Urine RBC (Auto) < 1 /hpf (0-3) 05/12/16 07:08 Ur Squamous Epith Cells < 1 /hpf (0-5) 05/12/16 07:08 Urine Bacteria Rare (<OCC) 05/12/16 07:08 Ur Random Sodium 32 mmol/L 05/13/16 07:47 Ur Random Potassium 33.9 mmol/L 05/13/16 07:47 Stool Occult Blood Positive (NEGATIVE) H 05/12/16 09:44 Blood Type A POSITIVE 05/12/16 00:14 Antibody Screen Negative 05/12/16 00:14 - Hospital Course Hospital Course: Pt seen and examined today , alert, denies any abdominal pain, N/V/d , tolerating diet post procedure s/p Colonoscopy / EGD today -no active bleeding, Gastritis, single gastric polyp ( see full report for details) H&H- stable - 10.8 today CR- improved- 1.2<1.4<1.8<2.8<3.8 pt is for discharge to retirement under my service Discharge Exam - Head Exam Head Exam: ATRAUMATIC, NORMAL INSPECTION, NORMOCEPHALIC - Eye Exam Eye Exam: EOMI, Normal appearance, PERRL Pupil Exam: NORMAL ACCOMODATION, PERRL - Respiratory Exam Respiratory Exam: Clear to PA & Lateral - Cardiovascular Exam Cardiovascular Exam: +S1, +S2 - GI/Abdominal Exam GI & Abdominal Exam: Normal Bowel Sounds Discharge Plan - Follow Up Plan Condition: GUARDED Disposition: REHAB FACILITY/REHAB UNIT Instructions: Heart Failure (DC), Heart Failure (GEN), Gastrointestinal Bleeding (DC), Gastrointestinal Bleeding (GEN), Rectal Bleeding (DC), Rectal Bleeding (GEN), Acute Kidney Injury (DC), Acute Kidney Injury (GEN), Hyperkalemia (DC), Hyperkalemia (GEN) Additional Instructions: Please call Dr. Pink upon patient arrival to the facility Continue medication as per Med. REc. Referrals: Alvarado Pink MD [Staff Provider] -
--- NOTE | 2016-05-16 01:34 | PN ---
DATE: 05/15/2016 LOCATION: The patient is located in room 358, bed A. REQUESTED BY: Dr. Alvarado Pink. REASON FOR RENAL CONSULTATION: Acute renal failure. HISTORY OF PRESENT ILLNESS: The patient is an 81-year-old elderly male with history of long standing hypertension, diabetes, coronary artery disease, cardiomyopathy, dementia who is a resident of long term, was admitted with worsening renal function and hyperkalemia and dehydration. The pa tient is being treated with IV fluids with gentle hydration. The patient is feeling much better out of bed to chair. Denies any chest pain, palpitations. Denies any fever, cough. No nausea, vomiting , diarrhea. PHYSICAL EXAMINATION: VITAL SIGNS: As follows: Blood pressure 130/59, pulse 74, respirations 20, temperature 97.5, satura tion 98%. Height 5 feet 5 inches and weight is 120 pounds. GENERAL: The patient is an 81-year-old elderly male, thin build, not in distress. HEENT: Pupils normal, reactive to light and accommodation. Conjunctivae pink. Sclerae anicteric. Tongue is moist. NECK: Trachea is midline. LUNGS: Symmetric on both sides. Bilateral breath sounds present. Clear on auscultation. CARDIOVASCULAR: Wells in the fifth intercostal space midclavicular line. S1 and S2 audible. No murm ur or gallop. ABDOMEN: Normal in appearance, soft, tympanic. No guarding, no rigidity. No hepatosplenomegaly. CENTRAL NERVOUS SYSTEM: The patient is alert, awake, oriented x 2-3. Sensory and motor system is wi thin normal limits. EXTREMITIES: No cyanosis, no clubbing, no edema. CURRENT MEDICATIONS: Include as follows: Aricept 10 mg at bedtime, DuoNeb inhaler q. 6 hours, Floma x 0.4 mg daily, clonidine 0.25 mg p.o. b.i.d., Lopressor 25 mg p.o. b.i.d. and Protonix 40 mg IV walter y and Robitussin 200 mg p.o. q. 4 hours and Seroquel 25 mg p.o. at bedtime. LABORATORY DATA: Include as follows as of 05/15/2016: WBC 6.6, hemoglobin 10.7, hematocrit is 31.4, platelets 235. Sodium 141, potassium 4.3, chloride 105, CO2 21, BUN 23, creatinine 1.2, glucose 122 , calcium 8.4. Urine culture as of 05/13/2016 is no growth. SUMMARY: The patient is an 81-year-old elderly male with a past medical history significant for long-standing hypertension, diabetes, coronary artery disease, cardiomyopathy, congestive heart failure, dementia who was admitted with abnormal labs and found to have increased BUN and creatinine and hyperkalemia and dehydration. 1. Acute renal failure secondary to dehydration and intravascular volume depletion secondary to diur etics. 2. Cardiomyopathy. 3. Hypertension. Blood pressure is stable. The patient is stable from the renal standpoint to go back to long term. Thank you for allowing me to participate in your patient's care. Sourav Rowley MD cc: [id number] TT: 05/16/2016 01:34:27 Confirmation # [id number] Dictation # [id number] mn
== END 2016-05-15 18:30 | DRG 682 ==
LOC: C.ER 23:00 → C.9E 05-12 04:21 → C.3T 05-12 06:39
PROVIDERS: ADMIT Internal Medicine; ATTEND Internal Medicine
PROC: 0DBL8ZZ Excision of Transverse Colon, Via Natural or Artificial Opening Endoscopic (ICD-10-PCS; principal; 2016-05-15 11:20)
PROC: 0DB68ZX Excision of Stomach, Via Natural or Artificial Opening Endoscopic, Diagnostic (ICD-10-PCS; 2016-05-15 11:20)
DX: N17.9 Acute kidney failure, unspecified (principal); K57.91 Diverticulosis of intestine, part unspecified, without perforation or abscess with bleeding; E87.2 Acidosis; I42.9 Cardiomyopathy, unspecified; D62 Acute posthemorrhagic anemia; I13.0 Hypertensive heart and chronic kidney disease with heart failure and stage 1 through stage 4 chronic kidney disease, or unspecified chronic kidney disease; I50.9 Heart failure, unspecified; E11.22 Type 2 diabetes mellitus with diabetic chronic kidney disease; I50.30 Unspecified diastolic (congestive) heart failure; G30.9 Alzheimer's disease, unspecified; E87.5 Hyperkalemia; E86.0 Dehydration; F02.80 Dementia in other diseases classified elsewhere, unspecified severity, without behavioral disturbance, psychotic disturbance, mood disturbance, and anxiety; Z95.1 Presence of aortocoronary bypass graft; I25.10 Atherosclerotic heart disease of native coronary artery without angina pectoris; K22.710 Barrett's esophagus with low grade dysplasia; N40.0 Benign prostatic hyperplasia without lower urinary tract symptoms; Z79.4 Long term (current) use of insulin; Z87.891 Personal history of nicotine dependence; E78.5 Hyperlipidemia, unspecified; Z68.20 Body mass index [BMI] 20.0-20.9, adult; K64.8 Other hemorrhoids; D12.3 Benign neoplasm of transverse colon; K31.7 Polyp of stomach and duodenum; K29.60 Other gastritis without bleeding; J45.909 Unspecified asthma, uncomplicated; N18.9 Chronic kidney disease, unspecified; E11.51 Type 2 diabetes mellitus with diabetic peripheral angiopathy without gangrene